=== PATIENT | female | born 1955 | race Caucasian/White ===

== ENCOUNTER → 2017-05-19 | Outpatient (CLI) | payer OTHER | LOC: FIMAGING 12:56 | PROVIDERS: ATTEND Obstetrics & Gynecology | DX: N95.0 Postmenopausal bleeding (principal); R93.8 Abnormal findings on diagnostic imaging of other specified body structures ==

== ENCOUNTER → 2017-05-26 | Outpatient (CLI) | payer OTHER | LOC: FIMAGING 15:12 | PROVIDERS: ATTEND Family Medicine | DX: Z12.31 Encounter for screening mammogram for malignant neoplasm of breast (principal) ==

== ENCOUNTER → 2017-06-02 | Outpatient (CLI) | payer OTHER | LOC: FIMAGING 11:24 | PROVIDERS: ATTEND Family Medicine | DX: R92.0 Mammographic microcalcification found on diagnostic imaging of breast (principal) | CPT/HCPCS: G0204 ==

== ENCOUNTER → 2017-06-13 | Outpatient (CLI) | payer OTHER ==
[~2017-06-13] MED LIST: BUPIVACAINE 0.5% 10 ML SDV ONE; LIDO/EPI 1% **Not for Epidural 20 ML MDV ONE; LIDOCAINE 1% 300 MG/30 ML SDV ONE; THROMBIN (BOVINE) 5,000 UNIT VIAL TP ONE
== END ==
LOC: FIMAGING 07:06
PROVIDERS: ATTEND Family Medicine
DX: D05.92 Unspecified type of carcinoma in situ of left breast (principal); D05.91 Unspecified type of carcinoma in situ of right breast
CPT/HCPCS: G0204

== ENCOUNTER 2017-07-07 07:13 | Day surgery (SDC) | payer OTHER ==
[~2017-07-07 07:13] MED LIST changes: -BUPIVACAINE 0.5% 10 ML SDV ONE; -LIDO/EPI 1% **Not for Epidural 20 ML MDV ONE; -LIDOCAINE 1% 300 MG/30 ML SDV ONE; -THROMBIN (BOVINE) 5,000 UNIT VIAL TP ONE; +ceFAZolin 2 GM/DEXTROSE 100 ML IV ONE; +ceFAZolin 2 GM/SWFI 2 GM/20 ML SYR IVP ONE
[2017-07-07] MEDS ORDERED: LIDOCAINE 1% 2 ML INJ ID PRN (07:25)
[2017-07-07] MEDS ORDERED: LR 1,000 ML IV ONE (07:25)
--- NOTE | 2017-07-07 07:31 | PDHPUP ---
History & Physical Update H&P update statement: This history and physical update is based on an assessment of the patient which was completed after admission or registration (within 24 hours), but prior to the surgery/procedure. H&P update: H&P reviewed & patient examined, no change in patient's condition since H&P completed
[2017-07-07] MEDS ORDERED: MIDAZOLAM 2 MG/2 ML VIAL IVP ONE (07:52)
--- NOTE | 2017-07-07 07:54 | PDANEPAE ---
ANE History of Present Illness US guided port placement ANE Past Medical History - Cardiovascular History Hx Hypertension: No Hx Arrhythmias: No Hx Chest Pain: No Hx Coronary Artery / Peripheral Vascular Disease: No Hx CHF / Valvular Disease: No Hx Palpitations: No - Pulmonary History Hx COPD: No Hx Asthma/Reactive Airway Disease: No Hx Recent Upper Respiratory Infection: No Hx Oxygen in Use at Home: No Hx Sleep Apnea: No Sleep Apnea Screening Result - Last Documented: Negative - Neurologic History Hx Cerebrovascular Accident: No Hx Seizures: No Hx Dementia: No - Endocrine History Hx Diabetes: No Endocrine History Comment: Hypothyroid-med. - Renal History Hx Renal Disorders: No - Liver History Hx Hepatic Disorders: No - Neurological & Psychiatric Hx Hx Neurological and Psychiatric Disorders: No - Cancer History Hx Cancer: Yes Cancer History Comment: breast cancer - Congenital Disorder History Hx Congenital Disorders: No - GI History Hx Gastrointestinal Disorders: No - Other Health History Other Health History: [place]-medicated cream daily. Bottom missing tooth. Bruise easily.Heavy menstrual periods. Arthritis both knees. - Chronic Pain History Chronic Pain: Yes (R knee.) - Surgical History Prior Surgeries: 2006-R knee scope. 1987-C section. Tonsils as child. ANE Review of Systems Review of systems is: negative Review of Systems: - Exercise capacity Exercise capacity: >=4 METS METS (RN): 4 METS ANE Patient History - Allergies Allergies/Adverse Reactions: Penicillins Allergy (Intermediate, Verified 06/25/15 10:15) Hives - Home Medications Home medications: home medication list seen and reviewed Home Medications: Calcium Carbonate [Oyster Shell Calcium 500 mg (*)] 06/11/15 [Last Taken ] Herbals/Supplements -Info Only 06/11/15 [Last Taken 07/05/17] Levothyroxine [Synthroid 137 mcg (*)] 06/11/15 [Last Taken 07/14/15 19:30] Vit A/Vit C/Vit E/Zinc/Copper [Preservision Areds Softgel] 06/11/15 [Last Taken 07/05/17] metroNIDAZOLE [Metrogel] 06/11/15 [Last Taken 07/06/17] Cholecalciferol (Vitamin D3) [Vitamin D3] 06/25/15 [Last Taken 07/05/17] Acetaminophen [Tylenol 325mg (*)] 07/06/17 [Last Taken Unknown] Ibuprofen 07/07/17 [Last Taken 07/05/17] - NPO status NPO Status: no food or drink >8 hours - Anes Hx Anes Hx: awareness under anesthesia - Smoking Hx Smoking Status: Never smoked - Family Anes Hx Family Anes Hx: none Family Hx Anesthesia Complications: none ANE Labs/Vital Signs - Vital Signs Height: 172.72 cm Weight: 98.883 kg ANE Physical Exam - Airway Neck exam: FROM Mallampati Score: Class 2 Mouth image: 1 - MISSING - Pulmonary Pulmonary: no respiratory distress - Cardiovascular Cardiovascular: regular rate and rhythym - ASA Status ASA Status: III ANE Anesthesia Plan Total IV Anesthesia: Yes
[2017-07-07] MEDS ORDERED: BUPIVACAINE 0.5% 30 ML SDV ONE (08:28)
[2017-07-07] MEDS ORDERED: PROPOFOL/EMULSION 500 MG/50 ML BOTTLE IV ONE (08:36)
[2017-07-07] MEDS ORDERED: LIDOCAINE 2% 100 MG/5 ML SYR ONE (08:36)
[2017-07-07] MEDS ORDERED: NALOXONE HCL 0.4 MG/ML INJ IVP PRN (09:04)
[2017-07-07] MEDS ORDERED: HYDROmorphONE/DILAUDID 1 MG/ML INJ IVP PRN (09:04)
[2017-07-07] MEDS ORDERED: fentaNYL 100 MCG/2 ML INJ IVP PRN (09:04)
[2017-07-07] MEDS ORDERED: OXYCODONE/APAP 5/325 TAB PO PRN (09:04)
[2017-07-07] MEDS ORDERED: HYDROCODONE/APAP 5/325 TAB PO PRN (09:04)
[2017-07-07] MEDS ORDERED: ONDANSETRON 4 MG/2 ML VIAL IVP PRN (09:04)
[2017-07-07] MEDS ORDERED: DEXAMETHASONE 4 MG/ML VIAL IVP PRN (09:04)
[2017-07-07] MEDS ORDERED: MEPERIDINE 25 MG/ML SYR IVP PRN (09:04)
[2017-07-07] MEDS ORDERED: ACETAMINOPHEN 500 MG TAB PO PRN (09:04)
--- NOTE | 2017-07-07 09:11 | POSTOPPROG ---
Post Op Note Date of Operation: 07/07/17 Surgeon: Melba Best Anesthesiologist: jaison Anesthesia: IV Sedation Pre-op Diagnosis: breast cancer Post-op Diagnosis: same Indication: 61 yo with breast cancer Procedure: L us guided port Findings: tip svc Inf/Abcess present in the surg proc area at time of surgery?: No Specimen(s): none
--- NOTE | 2017-07-07 09:13 | POSTANESTH ---
Post Anesthetic Evaluation Cardiovascular Status: Normal, Stable, Similar to Pre-Op Cond Respiratory Status: Normal, Stable, Similar to Pre-op Cond. Level of Consciousness/Mental Status: Can Participate in Eval, Mildly Sleepy, Arousable Pain Control: Adequate, Prn Tx Ordered Nausea/Vomiting Control: Adequate, Prn Tx Ordered Complications Possibly Related to Anesthesia: None Noted
[2017-07-07] MEDS ORDERED: HYDROCODONE/APAP 5/325 TAB ONE (09:52)
[2017-07-07 10:11] VITALS: TEMP 97
[2017-07-07 10:42] VITALS: BP 141/73; PULSE 59; RESP 14; O2SAT 93
--- NOTE | 2017-07-07 18:18 | GOP ---
[f rep st] OPERATIVE REPORT DATE OF OPERATION: 07/07/2017 SURGEON: Melba Best MD ANESTHESIA: General. ANESTHESIOLOGIST: Zhou Al MD PREOPERATIVE DIAGNOSIS: Bilateral breast cancer. POSTOPERATIVE DIAGNOSIS: Bilateral breast cancer. PROCEDURE PERFORMED: Left ultrasound-guided PowerPort placement. FINDINGS: Tip in the SVC. SPECIMENS: None. ESTIMATED BLOOD LOSS: 10 cc. INDICATIONS: The patient is a 61-year-old, diagnosed with a progressive right breast cancer and left breast DCIS. She presents for port placement. DESCRIPTION OF PROCEDURE: The patient was brought into the operating room, placed supine on the tabl e, and IV sedation was performed. Her bilateral neck and chest were prepped and draped in the usual sterile fashion. I infiltrated all sites with 0.5% Marcaine prior to making incisions. I used a tot al of 20 cc of 0.5% Marcaine. I used ultrasound to identify the left internal jugular vein. Under u ltrasound guidance, I accessed this on the first attempt with dark return of blood flow. I threaded the guidewire and removed the needle. I confirmed placement with fluoroscopy. A pocket was made to accommodate the port into the left chest. The port was tunneled up to the insertion site under fluor oscopy. The catheter was measured and cut to size. I placed a dilator and sheath over the wire, I r emoved the wire and the dilator. I placed the catheter through the sheath and peeled away the sheath . Placement was confirmed with fluoroscopy. The port withdrew blood easily and was flushed with hep philip. The pocket closed with 3-0 Vicryl followed by 4-0 Monocryl. Dermabond applied. She was awake layne in the operating room, transferred to PACU in stable condition. /[id number]/MODL
== END 2017-07-07 11:10 | disposition home or self-care (01) ==
LOC: FSGY 07:13
PROVIDERS: ATTEND Surgery
DX: C50.411 Malignant neoplasm of upper-outer quadrant of right female breast (principal); D05.12 Intraductal carcinoma in situ of left breast; Z17.0 Estrogen receptor positive status [ER+]; E78.5 Hyperlipidemia, unspecified; E03.9 Hypothyroidism, unspecified; E55.9 Vitamin D deficiency, unspecified; Z96.652 Presence of left artificial knee joint; Z86.010 Personal history of colon polyps
CPT/HCPCS: C1788; J0690; J1642; J2001; J2250; J2704

== ENCOUNTER → 2017-09-26 | Outpatient (CLI) | payer OTHER | LOC: FIMAGING 13:21 | PROVIDERS: ATTEND Nurse Practitioner | DX: M79.89 Other specified soft tissue disorders (principal); C50.919 Malignant neoplasm of unspecified site of unspecified female breast ==

== ENCOUNTER → 2017-10-13 | Outpatient (CLI) | payer OTHER | LOC: FIMAGING 10:28 | PROVIDERS: ATTEND Nurse Practitioner | DX: M79.605 Pain in left leg (principal); R22.42 Localized swelling, mass and lump, left lower limb ==

== ENCOUNTER → 2017-11-21 | Outpatient (CLI) | payer OTHER ==
[~2017-11-21] MED LIST changes: +GADOBUTROL 10 ML VIAL IVP ONE; -ceFAZolin 2 GM/DEXTROSE 100 ML IV ONE; -ceFAZolin 2 GM/SWFI 2 GM/20 ML SYR IVP ONE
== END ==
LOC: FIMAGING 12:53
PROVIDERS: ATTEND Internal Medicine Hematology & Oncology
DX: R92.8 Other abnormal and inconclusive findings on diagnostic imaging of breast (principal); Z85.3 Personal history of malignant neoplasm of breast
CPT/HCPCS: 0159T; 77059; A9585; C8908

== ENCOUNTER 2017-11-28 15:48 | Inpatient (IN) | payer SELFPAY ==
--- NOTE | 2017-11-28 16:14 | EDPHY ---
H & P Stated Complaint: SOB, fatigue for the past couple weeks, getting worse Time Seen by Provider: 11/28/17 16:13 HPI/ROS: CHIEF COMPLAINT: Shortness of breath, cough x5 days HISTORY OF PRESENT ILLNESS: The patient presents to the ED with a history of dyspnea. It has been progressive and now associated with a dry nonproductive cough and lower extremity edema. The patient does have a history of breast cancer and is currently being treated at [facility] by Dr. Graham. He saw the patient in the office today and referred her to the emergency department for evaluation of acute hypoxemia. The patient denies history of congestive heart failure. She denies history of pulmonary embolism. The patient denies history of cardiac disease. The patient reports she has developed fairly significant tense edema to her lower and upper extremities. REVIEW OF SYSTEMS: A comprehensive 10 point review of systems is otherwise negative aside from elements mentioned in the history of present illness. Source: Patient Exam Limitations: No limitations - Personal History Current Tetanus/Diphtheria Vaccine: Unsure Current Tetanus Diphtheria and Acellular Pertussis (TDAP): Unsure - Medical/Surgical History Hx Asthma: No Hx Chronic Respiratory Disease: No Hx Diabetes: No Hx Cardiac Disease: No Hx Renal Disease: No Hx Cirrhosis: No Hx Alcoholism: No Hx HIV/AIDS: No Hx Splenectomy or Spleen Trauma: No Other PMH: hypothyroid, breast CA - Social History Smoking Status: Never smoked - Physical Exam Exam: General Appearance: Alert, mild tachypnea Eyes: Pupils equal and round no pallor or injection ENT, Mouth: Mucous membranes moist Respiratory: Rales bilateral lower lobes Cardiovascular: Regular rate and rhythm Gastrointestinal: Abdomen is soft and nontender, no masses, bowel sounds normal Neurological: 5/5 strength all 4 extremities Skin: Warm and dry, no rashes Musculoskeletal: Neck is supple nontender Extremities: Pitting edema noted to the upper lower extremities Constitutional: Initial Vital Signs Temperature (C) 36.8 C 11/28/17 15:53 Heart Rate 101 H 11/28/17 15:53 Blood Pressure 126/75 H 11/28/17 15:53 O2 Sat (%) 86 L 11/28/17 15:53 O2 Delivery Mode Room Air Allergies/Adverse Reactions: Penicillins Allergy (Intermediate, Verified 11/28/17 15:52) Hives Home Medications: Medication Instructions Recorded Herbals/Supplements -Info Only 1 each PO DAILY 06/11/15 C/E/Zn/Cu/OM3/DHA/EPA/LUT/ZEAX 1 each PO BID 11/28/17 [Preservision Areds 2 Softgel] Calcium Carb W/Vit D [Calcium Carb 500 mg PO BID 11/28/17 W/Vit D 500/200 (*)] Cholecalciferol Vit D3 [Vitamin D3 5,000 units PO BID 11/28/17 2000 units tab (OTC)] Levothyroxine [Synthroid 137 mcg 137 mcg PO DAILY06 11/28/17 (*)] Multivitamins [Multivitamin (*)] 1 each PO DAILY 11/28/17 Prochlorperazine Maleate 10 mg PO BID PRN 11/28/17 [Compazine 10mg (*)] Trastuzumab [Herceptin] 150 mg IV .Q3WK 11/28/17 metroNIDAZOLE 0.75 % [Metrogel 1 clarice TP HS 11/28/17 0.75% Topical Gel (RX)] Medical Decision Making - Diagnostics EKG Interpretation: EKG: Complete interpretation has been separately recorded in the [id number] archive. Summary impression: Sinus rhythm, rate 92 Imaging Results: Imaging Impressions Chest X-Ray 11/28/17 16:33 Impression: Multifocal bilateral airspace consolidation with associated pleural effusions and compressive atelectasis. Different diagnosis includes bronchopneumonia, drug reaction/pneumonitis secondary to chemotherapy, and less likely limited carcinomatosis. Chest/Thorax CTA 11/28/17 17:13 Impression: 1. No pulmonary embolism. 2. Multifocal nonmasslike patchy lung consolidation bilaterally. Differential considerations include multifocal pneumonia, atypical edema and drug reaction pneumonitis. Follow-up imaging recommended. 3. Small pleural effusions, likely parapneumonic or related to volume overload. 4. Borderline mediastinal adenopathy, likely reactive. Findings and recommendations discussed with Willie Che at 5:46 PM hour, . ED Course/Re-evaluation: The patient presents to the ED for evaluation of dyspnea and edema. The patient was taken for a chest x-ray which demonstrates infiltrative changes to the lung bases. The patient was noted to have somewhat low voltage on her EKG. I did perform a bedside ultrasound which demonstrates no significant pericardial effusion or tamponade. Given the patient's cancer history she was taken for CT pulmonary angiogram which demonstrates similar changes to her chest x-ray. The patient did have blood cultures x2 obtained in the emergency department. She will be started on antibiotics for possible infiltrate. The patient has no evidence of septic physiology. Consultation was made with Dr. David De León from the hospitalist service who will admit the patient. Differential Diagnosis: Differential diagnosis considered includes pulmonary embolism, heart failure, pneumonitis, pneumonia - Data Points Laboratory Results: Laboratory Results 11/28/17 16:24 11/28/17 11/28/17 11/28/17 16:31 16:24 16:24 WBC 5.39 10^3/uL 10^3/uL (3.80-9.50) RBC 2.58 10^6/uL L 10^6/uL (4.18-5.33) Hgb 9.3 g/dL L g/dL (12.6-16.3) POC Hgb 9.9 gm/dL L gm/dL (12.6-16.3) Hct 28.7 % L % (38.0-47.0) POC Hct 29 % L % (38-47) MCV 111.2 fL H fL (81.5-99.8) MCH 36.0 pg H pg (27.9-34.1) MCHC 32.4 g/dL g/dL (32.4-36.7) RDW 20.4 % H % (11.5-15.2) Plt Count 136 10^3/uL L 10^3/uL (150-400) MPV 9.9 fL fL (8.7-11.7) Neut % (Auto) 73.1 % % (39.3-74.2) Lymph % (Auto) 16.1 % % (15.0-45.0) Lyon % (Auto) 9.8 % % (4.5-13.0) Eos % (Auto) 0.0 % L % (0.6-7.6) Baso % (Auto) 0.4 % % (0.3-1.7) Nucleat RBC Rel Count 0.0 % % (0.0-0.2) Absolute Neuts (auto) 3.94 10^3/uL 10^3/uL (1.70-6.50) Absolute Lymphs (auto) 0.87 10^3/uL L 10^3/uL (1.00-3.00) Absolute Monos (auto) 0.53 10^3/uL 10^3/uL (0.30-0.80) Absolute Eos (auto) 0.00 10^3/uL L 10^3/uL (0.03-0.40) Absolute Basos (auto) 0.02 10^3/uL 10^3/uL (0.02-0.10) Absolute Nucleated RBC 0.00 10^3/uL 10^3/uL (0-0.01) Immature Gran % 0.6 % % (0.0-1.1) Immature Gran # 0.03 10^3/uL 10^3/uL (0.00-0.10) Platelet Estimate ADEQUATE (ADEQ) Polychromasia 1+ H Microcytic Cells 1+ H Spherocytes 2+ H Oval Macrocytes 1+ H Smear Review By Pending POC Sodium 136 mEq/L mEq/L (135-145) POC Potassium 3.1 mEq/L L mEq/L (3.3-5.0) POC Chloride 97 mEq/L mEq/L (97-110) POC BUN 12 mg/dL mg/dL (7-23) POC Creatinine 0.7 mg/dL mg/dL (0.6-1.0) POC Glucose 119 mg/dL H mg/dL (70-100) Troponin I < 0.012 ng/mL ng/mL (0.000-0.034) NT-Pro-B Natriuret Pep 269 pg/mL H pg/mL (0-125) Point of Care Test Results: 11/28/17 16:31 POC Sodium 136 POC Potassium 3.1 L POC Chloride 97 POC BUN 12 POC Creatinine 0.7 POC Glucose 119 H Departure - Departure Disposition: [facility] Acute Clinical Impression: Hypoxemia, Peripheral edema, Breast cancer Condition: Fair
--- NOTE | 2017-11-28 16:31 | CPEKG ---
Heart Rate: 92 RR Interval: 652 P-R Interval: 172 QRSD Interval: 98 QT Interval: 380 QTC Interval: 471 P [place]: 17 QRS [place]: -12 T Wave [place]: 2 EKG Severity - BORDERLINE ECG - EKG Impression: SINUS RHYTHM EKG Impression: BORDERLINE R WAVE PROGRESSION, ANTERIOR LEADS EKG Impression: BORDERLINE T ABNORMALITIES, INFERIOR LEADS Electronically Signed By: Willie Che 28-Nov-2017 18:49:58
[2017-11-28 16:51] LABS: PLATELET COUNT 136 10^3/uL (150-400)
[2017-11-28] MEDS ORDERED: IOPAMIDOL (ISOVUE 370) 100 ML BTL IV ONE ×2 (17:17→17:21)
[2017-11-28] MEDS ORDERED: ACETAMINOPHEN 325 MG TAB PO PRN (17:26)
[2017-11-28] MEDS ORDERED: ONDANSETRON DISINTEGRATING 4 MG TAB PO PRN (17:26)
[2017-11-28] MEDS ORDERED: ONDANSETRON 4 MG/2 ML VIAL IVP PRN (17:26)
[2017-11-28] MEDS ORDERED: POTASSIUM CL 20 MEQ TAB PO ONE (17:50)
--- NOTE | 2017-11-28 18:17 | GHP ---
[f rep st] HISTORY AND PHYSICAL DATE OF ADMISSION: 11/28/2017 CHIEF COMPLAINT: Shortness of breath. HISTORY OF PRESENT ILLNESS: This is a 62-year-old female with a history of breast cancer who present s with shortness of breath. This has been ongoing for about a month. She is being treated with Taxo arcelia, carboplatin, Herceptin and Perjeta. She sees Dr. Graham. She currently describes some lower extremity edema which has been also progressive over the last month. She is not sure if she has los t any weight. She has a cough which is nonproductive. She denies any chest pain. She has a home pu lse oximetry which she has noted has been in the 80s recently. A month ago she was in the low 90s. In the emergency department she received a bedside echocardiogram. Dr. Che noted that she had a r elatively normal ejection fraction, normal valves, no restrictive cardiomyopathy. PAST MEDICAL/SURGICAL HISTORY: 1. Breast cancer on chemotherapy. 2. Hypothyroid. 3. Right TKA. MEDICATIONS: Please see medication reconciliation. ALLERGIES: Penicillin. SOCIAL HISTORY: She is accompanied by her . She does not drink or smoke. FAMILY HISTORY: She has multiple cancers in her family. REVIEW OF SYSTEMS: A 10-point review of systems is conducted and is negative except per HPI. PHYSICAL EXAM: VITAL SIGNS: Blood pressure 126/75, heart rate 101, respiration rate is 20, saturati ng at 86% on room air, temperature is 36.8. GENERAL: The patient is a pleasant female who is restin g comfortably on oxygen, no acute distress. HEENT: Normocephalic, atraumatic. CARDIOVASCULAR: Reg ular rate and rhythm. No murmurs, rubs, or gallops. CHEST: Shows her to have a left-sided port in place with no surrounding erythema. PULMONARY: Shows her to have bilateral basilar rales. ABDOMEN: Soft, nontender, nondistended. SKIN: Shows no rash. : No Gutierrez. NEUROLOGIC: Shows her to be alert and oriented x3. She is moving all extremities. EXTREMITIES: Shows her to have 2+ bilateral lower extremity pitting edema as well as some mild upper extremity pitting edema. LABS: Hemoglobin is 9.3, platelets are 136. BNP is 269. Potassium is 3.1. Albumin is 2.5. DATA: 1. I discussed this with Dr. Che. Will admit to med/surg. 2. I personally viewed and interpreted her chest x-ray. This shows bilateral infiltrates consistent with either pneumonia versus pulmonary edema versus pneumonitis. 3. I personally viewed and interpreted her ECG. This shows sinus rhythm. She has some mild T-wave flattening. IMPRESSION AND PLAN: 1. Constellation of pulmonary infiltrates, upper and lower extremity edema. Differential includes s ystolic congestive heart failure from chemotherapy, drug reaction to chemotherapy with pneumonitis as well as capillary leak. Also consider pulmonary embolism, CT angio is pending. Her albumin is 2.5, likely not low enough to explain edema from decreased oncotic pressure. For now, will follow up on CT angiogram. We will start her on antibiotics. Check a procalcitonin, consider stopping antibiotic s soon. Check echocardiogram. She will need an oncology consultation, she was sent in by Dr. Ana Luisa lieberman. 2. Breast cancer. She is getting treatment as above. Oncology will be involved. 3. Hypothyroid. We will restart her Synthroid dose. 4. Code status. 5. Venous thromboembolism risk is high. I will give her Lovenox. /[id number]/MODL
[2017-11-28] MEDS: HYDROcodone/CPM TUSSIONEX 5 ML UDSYR PO PRN (21:32)
[2017-11-28] MEDS ORDERED: PROCHLORPERAZINE MALEATE 10 MG TAB PO PRN (23:01)
[2017-11-29] MEDS: LEVOTHYROXINE 137 MCG TAB PO SCH (05:12)
[2017-11-29 05:27] LABS: PLATELET COUNT 127 10^3/uL (150-400)
[2017-11-29] MEDS: methylPREDNISolone SOD SUCC 125 MG/2 ML VIAL IVP SCH ×2 (09:40→20:55)
[2017-11-29] MEDS: PRESERVISION AREDS2 FORMULA EYE VIT 1 EACH PO SCH ×2 (09:40→20:55)
--- NOTE | 2017-11-29 09:49 | GCON ---
[f rep st] CONSULTATION HEM/ONC CONSULTATION REASON FOR CONSULTATION: shortness of breath and bilateral breast cancer. RECOMMENDATION: 1. Solu-Medrol at least for the first day at a high dose, then switch to prednisone, and then a slow taper. 2. Transfusion 1 unit of packed cells. CLINICAL IMPRESSION: 1. Taxotere induced hypersensitivity pneumonitis. 2. Stage IIA HER2 positive right-sided breast cancer in clinical complete remission with neoadjuvant TCHP and left-sided breast cancer in remission. CLINICAL HISTORY: The patient is a very pleasant 62-year-old woman who is a patient of Dr. Corbett. She presented with bilateral breast cancer at age 61 when she had a palpable right breast mas s 2.2 cm in size. She had a left-sided DCIS, and the right side was invasive lobular, ER positive, P R weakly positive, and HER2 was 3+. She had genetic testing performed, which was apparently negative , and a PET-CT scan showed no evidence of metastatic disease. She had 6 cycles of the TCHP, and now presents with an acute history of 1 week of significant dry cough and dyspnea on exertion without fev er. She was referred from the clinic to the emergency room where a CT angiogram ruled out pulmonary emboli and did reveal bilateral diffuse ground-glass opacities consistent with a drug induced pneumon itis. The patient's CBC today is remarkable for a white count of 4.3, hemoglobin is 7.7, and platele t count is 127. Her last dose of chemotherapy was on 11/07/2017 or, in other words, about 3 weeks ag o. PAST MEDICAL HISTORY: Otherwise unremarkable for the fact that she has generally been in good health . She never smoked cigarettes. She has an influenza vaccine this year. FAMILY HISTORY: Paternal grandmother with ovarian cancer at age 57 and her father had lung cancer at 61. She had a maternal grandmother with breast cancer. SOCIAL HISTORY: She works as the marketing operations coordinator at [employer], has 4 children, is marri ed and lives in [place]. REVIEW OF SYSTEMS: She currently has a performance status of 70%. She has difficulty walking to the bathroom because of shortness of breath, and she has a significant dry cough. She has had no fever. No nausea, vomiting, or diarrhea. The patient does not have any dysuria or hematuria. She has no bone complaints. She denies any head aches or focal neurologic weakness. PHYSICAL EXAMINATION: GENERAL: Clinical exam reveals a well-developed, coherent, alert white female looking her stated age. She is somewhat anxious. HEENT: She has no scleral icterus. NECK: She h as no cervical or supraclavicular adenopathy. BREASTS: Free of any focal masses. CV: S1 normal, S 2 normally split. She has no S3, S4, or murmur. ABDOMEN: Soft and nontender and she has no hepatos plenomegaly. She has abdominal obesity. MUSCULOSKELETAL: There is no extremity edema or calf tende rness. NEUROLOGICAL: She is intact. ASSESSMENT: 1. 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 Treatment plan would be to use corticosteroids and saw of Dr. rodríguez today and have a call in to discuss this with her hospitalist. I ordered Solu-Medrol initially at 125 mg every 12 hours, and then once she improves, then we switch her over to oral prednisone and then manage her as an outpatie nt. 2. Right-sided HER2 positive, estrogen receptor positive breast cancer. 3. Left-sided ductal carcinoma in situ. 4. Chemotherapy-induced pancytopenia. The breast cancer appears to be in a complete clinical remission on MRI scan. Further decision will be made about local therapy, but most likely would be bilateral mastectomies and sentinel node. The imaging tests were reviewed today including the MRIs and the CT. I think it would be appropriate to give her a unit of packed cells for hemoglobin of 7.7. I do not t hink we are dealing with DIC or TTP. Her organ function otherwise is normal today with a normal set of electrolytes, and I should note her BNP level was slightly elevated at 269. Her BUN and creatinin e were 13 and 0.6. /[id number]/MODL
--- NOTE | 2017-11-29 11:12 | ECHO ---
[email or web address] [address] [address] Main: [phone] Fax: Transthoracic Echocardiogram Name: CA ÁLVAREZ MR#: [id number] Study Date: 11/29/2017 Study Time: 09:51 AM Date of : 1955 Age: 62 year(s) Height: 172.7 cm (68 in.) Weight: 95.26 kg (210 lb.) BSA: 2.09 m2 Gender: Female Examination: Echo Indication: Edema/Breast CA/ chemo Image Quality: Contrast: Requested by: David De León BP: 122 mmHg/59 mmHg Heart Rate: Rhythm: Indication: Edema/Breast CA/ chemo Procedure Staff Shop Service Technician: Kimmie Medina RDCS Reading Physician: Yossi Murrieta MD Requesting Provider: Conclusions: Normal size left ventricle. Global hypercontractility of the left ventricle. The ejection fraction is estimated to be 70-75 %. The mitral valve is normal in appearance and function. Mild mitral valve regurgitation is present. Aortic valve is not well visualized. Trivial aortic valve regurgitation. AV max PG is 19mmHG. AV mean PG is 11mmHG.. The pulmonary artery pressure is normal. Dilated ascending aorta measuring 3.9 cm. Trivial pericardial effusion. There is a linear echodensity in the right atrium suggestive of a catheter. Clinical correlation required. Measurements: Chambers Valvular Assessment AV/MV Valvular Assessment TV/PV Normal Normal Normal Name Value Range Name Value Range Name Value Range Ao Saskia (MM): 3.3 cm (2.2 cm-3.7 AV meanP mmHg ( - ) TR Vmax: 2.66 mm/s ( - ) cm) LVOT Vmax: 1.32 m/s (0.7 m/s-1.1 TR PGmax: 28 mmHg ( - ) IVSd (2D): 1.0 cm (0.6 cm-1.1 m/s) syst. PAP: 33 mmHg ( - ) cm) REJI (VTI): 2.2 cm ( - ) LVDd (2D): 5.4 cm (3.9 cm-5.3 MV E Vmax: 1.18 m/s ( - ) cm) MV A Vmax: 0.87 m/s ( - ) LVDs (2D): 3.4 cm (2.1 cm-4 MV E/A: 1.36 ( - ) cm) LVPWd (2D): 1.0 cm ( - ) LVOTd 2.0 cm 2.0 cm mm LVEF (MOD4): 73 % (>=55 %) EF Range: 70-75 % Patient: CA ÁLVAREZ Study Date: 11/29/2017 Page 1 of 2 09:51 AM Continued Measurements: Chambers Valvular Assessment AV/MV Valvular Assessment TV/PV Name Value Name Value Name Value LADs: 3.7 cm MV E/E' Septal: 15.90 CVP (est.): 5 mmHg LADs Lon.2 cm MV E/E' Lateral: 12.40 LA Area: 19.6 cm2 Additional Vessels Name Value Ao Ascendin.9 cm Findings: Left Ventricle: Normal size left ventricle. No LV hypertrophy. Global hypercontractility of the left ventricle. The ejection fraction is estimated to be 70-75 %. No regional wall motion abnormality. Right Ventricle: Normal size right ventricle. Left Atrium: The left atrium is normal in size. Right Atrium: The right atrium is normal in size. Chemo port in place.. Mitral Valve: The mitral valve is normal in appearance and function. Mild mitral valve regurgitation is present. Aortic Valve: Aortic valve is not well visualized. Trivial aortic valve regurgitation. AV max PG is 19mmHG. AV mean PG is 11mmHG.. Tricuspid Valve: The tricuspid valve is normal in appearance and function. Mild tricuspid regurgitation is present. The pulmonary artery pressure is normal. Pulmonic Valve: The pulmonic valve is normal in appearance and function. Aorta: The aorta is normal. Dilated ascending aorta measuring 3.9 cm. Pericardium: Trivial pericardial effusion. Left side pleural effusion. (No Signature Object) Patient: CA ÁLVAREZ Study Date: 11/29/2017 Page 2 of 2 09:51 AM [id number]
--- NOTE | 2017-11-29 12:41 | SOAPPROG ---
SOAP Progress Note Assessment/Plan: Assessment/Plan: 62yo F well known to Dr. Best for bilateral breast cancer on neoadjuvant chemo. Admitted with taxotere-induced pneumonitis Current inpatient care per hospitalists, oncologists MRI last week shows tremendous improvement on neoadjuvant chemo! Dr. Best will see tomorrow Patient and 's questions answered Exam deferred Objective: Vital Signs Temp Pulse Resp BP Pulse Ox 36.7 C 89 14 121/66 H 95 11/29/17 11:33 11/29/17 11:33 11/29/17 11:33 11/29/17 11:33 11/29/17 11:33 Microbiology 11/28/17 23:10 Respiratory Panel (PCR) - Final Nasal, Sinus - Anaerobic Tube/Swab No Organism Detected Laboratory Results 11/29/17 05:05 11/29/17 05:05 11/28/17 11/29/17 11/30/17 05:59 05:59 05:59 Intake Total 152 Balance 152 ICD10 Worksheet Patient Problems: Problems Problem Status Onset Breast cancer Acute Hypoxemia Acute Peripheral edema Acute Primary localized osteoarthritis of right knee Acute
[2017-11-29] MEDS: ENOXAPARIN 40 MG/0.4 ML SYR SC SCH (12:53)
--- NOTE | 2017-11-29 13:33 | ASMTCMCOM ---
CM Note CM Note Notes: Patient admitted for SOB. She has breast cancer and is currently receiving chemo (to which she is responding well) with Dr Graham. Oncology and Surgery will both see her. PT has been ordered and is pending. Patient lives with her and is employed. Case Management will follow for discharge planning. Date Signed: 11/29/2017 01:32 PM Electronically Signed By:Sydney Madera RN
[2017-11-29] MEDS ORDERED: FUROSEMIDE 20 MG/2 ML VIAL IVP ONE (14:53)
--- NOTE | 2017-11-29 14:58 | HOSPPROG ---
Hospitalist Progress Note Assessment/Plan: #Drug induced Hypersensitivity Pneumonitis #Pulmonary Edema, Pedal Edema #Possible CAP #Bilateral Breast cancer #Chemotherapy induced pancytopenia -pending 1 unit PRBC transfusion #Hypokalemia Plan: -Cont high dose steroids, decrease tomorrow -TTE reviewed, preserved EF -will do a trial of Lasix 20mg IV x 1 after transfusion, may need additional -for now cont abx, although low suspicion for pneumonia, can likely stop after tomorrows dose -await PRBC transfusion -Replace electrolytes -Lovenox for DVT proph D/W Dr. Mckeon Subjective: Feels slightly better. still SOB Objective: Vital Signs Temp Pulse Resp BP Pulse Ox 36.7 C 89 14 121/66 H 95 11/29/17 11:33 11/29/17 11:33 11/29/17 11:33 11/29/17 11:33 11/29/17 11:33 Microbiology 11/28/17 23:10 Respiratory Panel (PCR) - Final Nasal, Sinus - Anaerobic Tube/Swab No Organism Detected Laboratory Results 11/29/17 05:05 11/29/17 05:05 11/28/17 11/29/17 11/30/17 05:59 05:59 05:59 Intake Total 152 Balance 152 - Physical Exam Constitutional: no apparent distress Eyes: PERRL, EOMI Ears, Nose, Mouth, Throat: moist mucous membranes, hearing normal Cardiovascular: regular rate and rhythym, edema (1+) Respiratory: no respiratory distress, reduced air movement Gastrointestinal: normoactive bowel sounds, soft, non-tender abdomen Skin: warm Neurologic: AAOx3 Psychiatric: interacting appropriately, not anxious, not encephalopathic Lymph, Heme, Immunologic: No petechiae ICD10 Worksheet Patient Problems: Problems Problem Status Onset Breast cancer Acute Hypoxemia Acute Peripheral edema Acute Primary localized osteoarthritis of right knee Acute
[2017-11-29] MEDS ORDERED: PROTOCOL POTASSIUM 1 DOSE MISC PRN (15:02)
[2017-11-29] MEDS ORDERED: BENZONATATE 100 MG CAP PO PRN (15:42)
--- NOTE | 2017-11-29 16:50 | PDMN ---
Medical Necessity Medical necessity: ongoing tx needed > 2 midnights- drug induced pneumonitis, pulm edema, pedal edema, poss CAP, hx bilat. Br. Ca. , chemo induced pancytopenia, hypokalemia
[2017-11-29] MEDS: METRONIDAZOLE 0.75 % 45 GEL TP SCH (20:55)
[2017-11-29] MEDS: HYDROcodone/CPM TUSSIONEX 5 ML UDSYR PO PRN (21:00)
[2017-11-30 04:03] LABS: PLATELET COUNT 159 10^3/uL (150-400)
[2017-11-30] MEDS: LEVOTHYROXINE 137 MCG TAB PO SCH (05:50)
[2017-11-30] MEDS ORDERED: POTASSIUM CL 10 MEQ TAB PO ONE (07:12)
[2017-11-30] MEDS: ENOXAPARIN 40 MG/0.4 ML SYR SC SCH (09:06)
[2017-11-30] MEDS: methylPREDNISolone SOD SUCC 125 MG/2 ML VIAL IVP SCH ×2 (09:06→20:58)
[2017-11-30] MEDS: PRESERVISION AREDS2 FORMULA EYE VIT 1 EACH PO SCH ×2 (10:54→20:58)
--- NOTE | 2017-11-30 12:32 | SOAPPROG ---
SOAP Progress Note Assessment/Plan: Assessment: 1. Taxotere induced hypersensitivity pneumonitis: She is breathin easier. The cXR is worse but i dont think that means anything at this point. We can probably convert to prednisone tomorrow. Once we are confident that she is improving we can probably discharge her on prednisone. 2. Anemia: better after one unit Plan:CBC in AM 11/30/17 12:29 Subjective: She feels better today. She is not coughing. Objective: Vital Signs Temp Pulse Resp BP Pulse Ox 36.4 C 96 20 135/78 H 91 L 11/30/17 11:56 11/30/17 11:56 11/30/17 11:56 11/30/17 11:56 11/30/17 11:56 Laboratory Results 11/30/17 03:35 11/30/17 03:35 11/29/17 11/30/17 12/01/17 05:59 05:59 05:59 Intake Total 750 Output Total 1800 100 Balance -1050 -100 Lungs: Mild dry rales in lower lung boggs. - Time Spent With Patient Time Spent With Patient: 30 min answering questions from the patient and her ICD10 Worksheet Patient Problems: Problems Problem Status Onset Primary localized osteoarthritis of right knee Acute Hypoxemia Acute Peripheral edema Acute Breast cancer Acute
[2017-11-30] MEDS ORDERED: FUROSEMIDE 40 MG/4 ML VIAL IVP ONE (13:05)
--- NOTE | 2017-11-30 13:40 | HOSPPROG ---
Hospitalist Progress Note Assessment/Plan: #Drug induced Hypersensitivity Pneumonitis #Pulmonary Edema, Pedal Edema #Possible CAP #Bilateral Breast cancer #Chemotherapy induced pancytopenia -s/p 1 unit PRBC transfusion #Hypokalemia Plan: -Cont high dose steroids, change to Prednisone tomorrow -TTE reviewed, preserved EF -additional IV Lasix today -start oral Lasix tomorrow -cont abx -repeat cbc in a.m. -Lovenox for DVT proph Subjective: good diuresis yesterday after Furosemide. CXR looks worse today. Still on 3L o2 Objective: Vital Signs Temp Pulse Resp BP Pulse Ox 36.4 C 96 20 135/78 H 91 L 11/30/17 11:56 11/30/17 11:56 11/30/17 11:56 11/30/17 11:56 11/30/17 11:56 Laboratory Results 11/30/17 03:35 11/30/17 03:35 11/29/17 11/30/17 12/01/17 05:59 05:59 05:59 Intake Total 750 Output Total 1800 300 Balance -1050 -300 - Physical Exam Constitutional: no apparent distress, not in pain Eyes: PERRL, EOMI Ears, Nose, Mouth, Throat: moist mucous membranes, hearing normal Cardiovascular: regular rate and rhythym, edema (1-2 +) Respiratory: reduced air movement Gastrointestinal: normoactive bowel sounds, soft, non-tender abdomen Genitourinary: no bladder fullness Skin: warm Neurologic: AAOx3 Psychiatric: interacting appropriately, not anxious, not encephalopathic, thought process linear Lymph, Heme, Immunologic: No petechiae ICD10 Worksheet Patient Problems: Problems Problem Status Onset Breast cancer Acute Hypoxemia Acute Peripheral edema Acute Primary localized osteoarthritis of right knee Acute
--- NOTE | 2017-11-30 16:08 | ASMTCMCOM ---
CM Note CM Note Notes: CM spoke w/ PT and they are recommending HC at this time. Annika from [employer] stopped by to evaluate pt today. Pt is in the process of enrolling into [employer]. Pt reports that she will eventually be re-enrolled with [employer]. Because pt is self pay. Pt will not qualify for any outpatient services at this time. CM met w/ pt for dispo planning. CM went over the recommendation by PT. Pt will most likely d/c independent when medically stable. CM available for changes. Plan: Independent Date Signed: 11/30/2017 04:07 PM Electronically Signed By:NADIA Lopez
[2017-11-30] MEDS: METRONIDAZOLE 0.75 % 45 GEL TP SCH (20:59)
[2017-11-30] MEDS: HYDROcodone/CPM TUSSIONEX 5 ML UDSYR PO PRN (21:03)
[2017-12-01 03:59] LABS: PLATELET COUNT 205 10^3/uL (150-400)
[2017-12-01] MEDS: LEVOTHYROXINE 137 MCG TAB PO SCH (05:55)
[2017-12-01] MEDS ORDERED: POTASSIUM CL 10 MEQ TAB PO ONE ×2 (06:27→20:53)
[2017-12-01] MEDS: methylPREDNISolone SOD SUCC 125 MG/2 ML VIAL IVP SCH (09:48)
[2017-12-01] MEDS: ENOXAPARIN 40 MG/0.4 ML SYR SC SCH (09:48)
[2017-12-01] MEDS: PRESERVISION AREDS2 FORMULA EYE VIT 1 EACH PO SCH ×2 (10:28→21:17)
[2017-12-01] MEDS: FUROSEMIDE 20 MG TAB PO SCH (10:28)
--- NOTE | 2017-12-01 10:44 | SOAPPROG ---
SOAP Progress Note Assessment/Plan: Assessment: 1. Taxotere induced hypersensitivity pneumonitis: Breathing is improving. The cXR is worse but i dont think that means anything at this point. We will start prednisone 60-80 mg daily today. She can go home when she is stable. 2. Anemia: Hgb 8.9 today. We will follow as OP Plan:as above 11/30/17 12:29 12/01/17 10:43 12/01/17 10:44 Subjective: She is feeling better. No significant cough Objective: Vital Signs Temp Pulse Resp BP Pulse Ox 36.6 C 90 17 135/79 H 93 12/01/17 08:15 12/01/17 08:15 12/01/17 08:15 12/01/17 08:15 12/01/17 08:15 Laboratory Results 12/01/17 03:41 12/01/17 03:41 11/30/17 12/01/17 12/02/17 05:59 05:59 05:59 Intake Total 750 850 Output Total 1800 1300 Balance -1050 -450 ICD10 Worksheet Patient Problems: Problems Problem Status Onset Breast cancer Acute Hypoxemia Acute Peripheral edema Acute Primary localized osteoarthritis of right knee Acute
[2017-12-01] MEDS ORDERED: FUROSEMIDE 20 MG/2 ML VIAL IVP ONE (11:11)
--- NOTE | 2017-12-01 11:14 | HOSPPROG ---
Hospitalist Progress Note Assessment/Plan: #Drug induced Hypersensitivity Pneumonitis #Pulmonary Edema, Pedal Edema #Possible CAP #Bilateral Breast cancer #Chemotherapy induced pancytopenia -s/p 1 unit PRBC transfusion #Hypokalemia #Weakness and Deconditioning Plan: -change steroids to prednisone, solumedrol already given this morning -TTE reviewed, preserved EF -lasix 20 mg IV x 1 + 20mg po daily as already given -cont oral lasix tomorrow -cont Levaquin -Lovenox for DVT proph -PT Expect d/c tomorrow Subjective: overall better, still with Dyspnea on exertion. leg swelling is better Objective: Vital Signs Temp Pulse Resp BP Pulse Ox 36.6 C 90 17 135/79 H 93 12/01/17 08:15 12/01/17 08:15 12/01/17 08:15 12/01/17 08:15 12/01/17 08:15 Laboratory Results 12/01/17 03:41 12/01/17 03:41 11/30/17 12/01/17 12/02/17 05:59 05:59 05:59 Intake Total 750 850 Output Total 1800 1300 Balance -1050 -450 - Physical Exam Constitutional: no apparent distress Eyes: PERRL Ears, Nose, Mouth, Throat: moist mucous membranes, hearing normal Cardiovascular: regular rate and rhythym, edema Respiratory: reduced air movement Gastrointestinal: normoactive bowel sounds, soft, non-tender abdomen Skin: warm Musculoskeletal: generalized weakness Neurologic: AAOx3 Psychiatric: interacting appropriately, not anxious Lymph, Heme, Immunologic: No petechiae ICD10 Worksheet Patient Problems: Problems Problem Status Onset Breast cancer Acute Hypoxemia Acute Peripheral edema Acute Primary localized osteoarthritis of right knee Acute
--- NOTE | 2017-12-01 12:19 | ASMTCMCOM ---
CM Note CM Note Notes: Chart reviewed. Discussed in clinical rounds. 74 year old female s/p right knee surgery that required washout. Patient would benefit from SNF for rehab. [facility]. Referral via [employer]. Likely ready to dc tomorrow or Monday. CM to follow. Date Signed: 12/01/2017 12:18 PM Electronically Signed By:Inna Sanchez RN
--- NOTE | 2017-12-01 13:37 | ASMTCMCOM ---
CM Note CM Note Notes: Addendum. previous note does NOT pertain to this patient , Wrong chart documentation done. This patient is self pay and to discharge independently for now. CM available should needs change. Date Signed: 12/01/2017 01:37 PM Electronically Signed By:Inna Sanchez RN
[2017-12-01] MEDS: HYDROcodone/CPM TUSSIONEX 5 ML UDSYR PO PRN (21:20)
[2017-12-01] MEDS: METRONIDAZOLE 0.75 % 45 GEL TP SCH (21:35)
[2017-12-02 05:08] LABS: PLATELET COUNT 213 10^3/uL (150-400)
[2017-12-02] MEDS: LEVOTHYROXINE 137 MCG TAB PO SCH (05:44)
[2017-12-02] MEDS ORDERED: POTASSIUM CL 10 MEQ TAB PO ONE (07:40)
[2017-12-02] MEDS ORDERED: predniSONE 20 MG TAB PO SCH (09:00)
[2017-12-02] MEDS: PRESERVISION AREDS2 FORMULA EYE VIT 1 EACH PO SCH (09:44)
[2017-12-02] MEDS: FUROSEMIDE 20 MG TAB PO SCH (09:44)
[2017-12-02] MEDS: ENOXAPARIN 40 MG/0.4 ML SYR SC SCH (09:45)
--- NOTE | 2017-12-02 12:25 | PDHOMEO2F ---
Home Oxygen Face to Face Home Orders: I certify that a physician or a nurse practitioner or physician's legal executive assistant has had a [id number] encounter with this patient on the date of this order due to the diagnosis listed, which relates to the primary reason the patient requires home oxygen. Alternative treatments have been tried, or considered, and deemed ineffective. It is anticipated that supplemental oxygen will result in improvement with treatment. Home oxygen qualifying diagnosis: HYPOXEMIA SpO2 on room air (%): 86 Frequency of home oxygen needed: continuous Home oxygen liters per minute: 2 Home oxygen delivery device: nasal cannula Concentrator: Yes E-tanks for mobility and back up: Yes If ordering portable O2, is the patient mobile in the home?: Yes I certify that, based on these findings, the home oxygen is medically necessary for this patient for the following length of time. Length of time home oxygen needed: 99 years
--- NOTE | 2017-12-02 12:31 | SOAPPROG ---
SOAP Progress Note Assessment/Plan: Assessment/Plan: 62yo w Stage IIA ER+/HER2+ beast cancer on oenoadjuvant TCHP who p/w hypoxia likely due to taxotere pneumonitis 1. Pneumonitis - improved w steroids fortunately, done w chemo d/c home today w outpt follow up 2. ER+/HER2+ breast cancer - s/p neoadjuvant chemo plans surgery w Dr Best adjuvant treatment will somewhat depend on final path 3. Anemia - chemo induced; follow 12/02/17 12:33 Objective: Vital Signs Temp Pulse Resp BP Pulse Ox 36.4 C 103 H 20 136/84 H 89 L 12/02/17 08:00 12/02/17 08:00 12/02/17 08:00 12/02/17 08:00 12/02/17 08:00 Laboratory Results 12/02/17 04:45 12/02/17 04:45 12/01/17 12/02/17 12/03/17 05:59 05:59 05:59 Intake Total 850 1100 Output Total 1300 2500 Balance -450 -1400 ICD10 Worksheet Patient Problems: Problems Problem Status Onset Breast cancer Acute Hypoxemia Acute Peripheral edema Acute Primary localized osteoarthritis of right knee Acute
--- NOTE | 2017-12-02 12:35 | PDDCSUM ---
Discharge Summary Discharge Summary: This is a 62 yo Female with hx of bilateral breast cancer who was admitted Taxotere induced pneumonitis. She was also found to have e/o of pneumonia and pulm edema. She was treated accordingly. She has completed her abx. She will be on a steroid taper. She is on Lasix 20mg daily. TTE was c/w preserved LVEF. She has f/u with Oncology on Monday. Please recheck labs at that time, specifically her K has been a little low, but now that diuresis has slowed, she may not need ongoing replacement. she has been set up with home O2 DDX: #Drug induced Hypersensitivity Pneumonitis #Pulmonary Edema, Pedal Edema #Possible CAP #Bilateral Breast cancer #Chemotherapy induced pancytopenia -s/p 1 unit PRBC transfusion #Hypokalemia #Weakness and Deconditioning Exam: VSS NAD AAOX3 RRR CTA B S/NT/ND TRACE LE EDEMA MEDS: SEE MED REC F/U: PER ABOVE TOTAL TIME SPEN ON D/C IS 40 MINS
[2017-12-02 13:09] VITALS: BP 123/70; PULSE 85; RESP 18; TEMP 97.9; O2SAT 94
--- NOTE | 2017-12-02 14:25 | ASDISCHSUM ---
Discharge Information Plan Status:Home with No Needs Medically Cleared to Leave:12/02/2017 Discharge Date:12/02/2017 CM D/C Disposition:Home, Routine, Self-Care ADT D/C Disposition:Home, Routine, Self-Care Projected Discharge Date:12/02/2017 11:00 AM Transportation at D/C:Family Discharge Delay Reason: Follow-Up Date:12/02/2017 11:00 AM Discharge Slot: Final Diagnosis: Placement Information Referral Type:*Care Home/SNF Referral ID:[id number] Provider Name: Address 1: Phone Number: Address 2: Fax Number: City: Selection Factors: State: Patient Contact Information Contact Name:JENNIFER Relationship: Address:[address] City:[place] Alternate Phone: [facility]/Zip Code:[place] [address] Email: Financial Information Financial Class:Self-Pay Primary Plan Desc:SELF PAY Primary Plan Number: Secondary Plan Desc: Secondary Plan Number: Assessment Information [facility] CM Progress Note CM Note CM Note Notes: Patient admitted for SOB. She has breast cancer and is currently receiving chemo (to which she is responding well) with Dr Graham. Oncology and Surgery will both see her. PT has been ordered and is pending. Patient lives with her and is employed. Case Management will follow for discharge planning. Date Signed: 11/29/2017 01:32 PM Electronically Signed By:Sydney Madera RN [facility] CM Progress Note CM Note CM Note Notes: CM spoke w/ PT and they are recommending HC at this time. Annika from financial services stopped by to evaluate pt today. Pt is in the process of enrolling into [employer]. Pt reports that she will eventually be re-enrolled with [employer]. Because pt is self pay. Pt will not qualify for any outpatient services at this time. CM met w/ pt for dispo planning. CM went over the recommendation by PT. Pt will most likely d/c independent when medically stable. CM available for changes. Plan: Independent Date Signed: 11/30/2017 04:07 PM Electronically Signed By:NADIA Lopez [facility] Progress Note CM Note CM Note Notes: Chart reviewed. Discussed in clinical rounds. 74 year old female s/p right knee surgery that required washout. Patient would benefit from SNF for rehab. [facility] Likely ready to dc tomorrow or Monday. CM to follow. Date Signed: 12/01/2017 12:18 PM Electronically Signed By:Inna Sanchez RN [facility] Progress Note CM Note CM Note Notes: Addendum. previous note does NOT pertain to this patient , Wrong chart documentation done. This patient is self pay and to discharge independently for now. CM available should needs change. Date Signed: 12/01/2017 01:37 PM Electronically Signed By:Inna Sanchez RN Case Management Discharge Plan Note Case Management Discharge Discharge Order Complete? Answers: Yes Patient to Obtain Answers: via Family Medications Transportation Arranged Answers: Family/Friends Family Notified Answers: Yes Discharge Comments Notes: Pt is discharging home today with her family and no CM needs. She will f/u with oncology on Monday. Date Signed: 12/02/2017 02:23 PM Electronically Signed By:CLAUDIA Suarez Intervention Information
--- NOTE | 2017-12-02 14:26 | ASMTLACE ---
LACE Length of stay for Answers: 3 days current admission Acuity / Level of Answers: Yes Care: Did the patient have an inpatient admission? Comorbidities - select Answers: Any tumor (including all that apply lymphoma or leukemia) Other Notes: hypothyroid # of Emergency department Answers: 1-2 visits in the last 6 months Score: 10 Date Signed: 12/02/2017 02:25 PM Electronically Signed By:CLAUDIA Suarez
[2017-12-05] MEDS ORDERED: predniSONE 20 MG TAB PO SCH (09:00)
[2017-12-08] MEDS ORDERED: predniSONE 20 MG TAB PO SCH (09:00)
[2017-12-11] MEDS ORDERED: predniSONE 10 MG TAB PO SCH (09:00)
== END 2017-12-02 15:46 | disposition home or self-care (01) | DRG 196 ==
LOC: INTOOBSV 17:23 → F2W 19:27 → OBSVTOIN 11-29 15:00 → F1N 12-01 18:44
PROVIDERS: ADMIT Student in an Organized Health Care Education/Training Program; ATTEND Student in an Organized Health Care Education/Training Program
PROC: 30233N1 Transfusion of Nonautologous Red Blood Cells into Peripheral Vein, Percutaneous Approach (ICD-10-PCS; principal; 2017-11-29)
DX: J67.9 Hypersensitivity pneumonitis due to unspecified organic dust (principal); D61.810 Antineoplastic chemotherapy induced pancytopenia; C50.911 Malignant neoplasm of unspecified site of right female breast; T45.1X5A Adverse effect of antineoplastic and immunosuppressive drugs, initial encounter; E78.5 Hyperlipidemia, unspecified; E03.9 Hypothyroidism, unspecified; E87.6 Hypokalemia; Z88.0 Allergy status to penicillin; Z96.651 Presence of right artificial knee joint; Z85.3 Personal history of malignant neoplasm of breast
CPT/HCPCS: 82947-QW; 97110-GP; 97116-GP; 97161-GP; G0378; J1650; J1940; J1956; J2930; J7512; P9016; Q9967

== ENCOUNTER 2017-12-22 10:52 | Inpatient (IN) | payer OTHER ==
[2017-12-22] MEDS ORDERED: ACETAMINOPHEN 325 MG TAB PO PRN (13:23)
[2017-12-22] MEDS ORDERED: ONDANSETRON DISINTEGRATING 4 MG TAB PO PRN (13:23)
[2017-12-22] MEDS ORDERED: ONDANSETRON 4 MG/2 ML VIAL IVP PRN (13:23)
[2017-12-22] MEDS ORDERED: PROCHLORPERAZINE MALEATE 10 MG TAB PO PRN (14:48)
[2017-12-22] MEDS ORDERED: TRASTUZUMAB IV SCH (15:00)
[2017-12-22] MEDS ORDERED: PROTOCOL POTASSIUM 1 DOSE MISC PRN (15:00)
--- NOTE | 2017-12-22 15:00 | PDGENHP ---
History and Physical History and Physical: CC: Dyspnea HISTORY: This patient is a 8-year-old woman with breast cancer diagnosed in June 2017, grade 3 lobular carcinoma or receptor positive x3. She was started on neoadjuvant therapy with Taxotere and carboplatin and has received trastuzumab and pertuzumab. Recently she had been here at this hospital with shortness of breath and pulmonary infiltrates. She had been treated at that time with some steroid and antibiotics but overall was felt most likely to have a Taxotere induced pneumonitis. She had tapered off of steroid and stop antibiotics, initially had felt improved but symptoms returned and she has had 1 more short treated room taper of steroids since then that again and had some impact but symptoms returning as the doses come down. She was seen 2 days ago [facility] where she had progressive shortness of breath. A CT scan was done at the [facility], today showing worsening pulmonary infiltrates, bilateral pleural effusions, and now what looks like a pericardial effusion as well. She has had no fevers. She has no upper respiratory infection type symptoms. She has nothing that sounds like a cardiac symptom per se, no pleuritic pain. She has some swelling of both legs. She has a cough with no sputum. No headache or sinus pains ROS: She does admit to some neuropathy symptoms and hands and feet from her chemotherapy that is persisting. A comprehensive 10 system review revealed no other significant findings PAST MEDICAL HISTORY: breast cancer as above Total knee replacement Hypothyroidism No history of prior lung disease, no history of heart kidney liver or neurologic disease FAMILY MEDICAL HISTORY: Lots of lung breast and prostate cancer and 1 cancer this sounds like a primary brain malignancy SOCIAL HISTORY: lives with her who is here at the bedside other Has never smoked MEDICATIONS: The patients list has been reconciled by our clinical pharmacist in the EMR. I have reviewed the list and ordered appropriate medicines. PHYSICAL EXAMINATION: Vital Signs: Stable without fever Examination: General: alert, oriented, good mentation, relaxed, breathing nasal cannula oxygen Skin: warm, dry, good color, no rash HEENT: normal Neck: JVD is noted, no palpable mass or adenopathy Resps: Mildly labored Lungs: Diffuse dry rales in the lower 2/3 of right and left lung boggs Heart: regular, 1/6 systolic murmur along the sternal border Abdomen: soft, nondistended, nontender, +BS, no mass Upper Extremities: normal Lower Extremities: 1+ edema is palpable in both legs from the upper calf to the ankles, warm No Bleeding or bruising Neurologic: normal speech/language, normal gas line installer, no focal weakness IV site: looks normal LABORATORY DATA: Blood tests were done at the [facility] today On CBC she has a white blood cell count 1 hemoglobin 9 platelets 216 Chemistry panel shows a potassium of 3.4 otherwise unremarkable RADIOLOGY STUDIES: CT scan was done at the [facility] today and I did review the images with Dr. Mathews: There is obvious diffuse infiltrative disease throughout both lungs, with moderate bilateral pleural effusions without obvious evidence of loculation, and also with the presence of pericardial effusion apparent 12 LEAD EKG: Ordered and pending ASSESSMENT: 1-progressive hypoxemic respiratory failure with recently diagnosed Taxotere induced pneumonitis as the most likely cause 2-newly identified bilateral pleural effusions and pericardial effusion, likely related to above 3-no fevers or definite new symptoms to suggest infection but will want to do further testing be sure no overlying infection 4-jugular venous distension and peripheral edema indicate some right heart failure, suspected maybe some pulmonary hypertension at this point 5-breast cancer, lobular, diagnosed in June receiving neoadjuvant chemotherapy recently with planned bilateral mastectomies upcoming, currently delayed due to her respiratory illness 6-anemia of malignancy and chemotherapy 2-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 Roy is recommending prednisone at total dose of 1 milligram/kilogram daily at this time divided the twice daily dosing with recommendation for longer term care with this medication until she is clearly resolved -continue Lasix diuresis but I will increase the dose to 40 mg daily at this time -potassium replacement -Dr. Henri Garcia has been consulted from pulmonology I have reviewed the patient's case in detail with Dr. Freddy Mathews I have reviewed the patient's past medical records as part of this assessment, including cancer care clinic records and previous hospital admission records from this hospital
--- NOTE | 2017-12-22 15:12 | GCON ---
[f rep st] CONSULTATION MEDICAL ONCOLOGY FOLLOWUP CONSULTATION. 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 RECOMMENDATIONS: 1. I would place the patient on full dose of steroids. She is 90 kg. Therefore, I would place her on 45 mg of prednisone by mouth twice a day. 2. If the she fails to respond adequately to steroids in the next couple of days, she will likely ne ed a bronchoscopy. I spoke with Dr. Henir Garcia regarding consultation. 3. The patient's scan from today shows bilateral pleural effusions in addition to exacerbation of he r interstitial pneumonitis and also shows a pericardial effusion. I have ordered an echocardiogram f or further evaluation of her pericardial effusion. 4. The patient was to have had bilateral mastectomies for her bilateral breast cancer, but at the mo ment is on hold pending improvement in her lung function. ASSESSMENT: This 62-year-old white female was diagnosed with bilateral breast cancer in May of 2017. 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 She has undergone neoadjuvant chemotherapy with TCH plus pe rtuzumab. She finished neoadjuvant therapy at the end of October 2017. 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 She was initially placed on high-dose steroids and this showed improvement. She had an attemp humberto rapid taper which unfortunately has resulted in an exacerbation of her underlying symptoms. Because of increasing shortness of breath and increasing oxygen requirement, she was seen in the offi ce today and a CT of the chest was obtained which revealed worsening bilateral pneumonitis as well as bilateral pleural effusions and pericardial effusions. She is now admitted for further evaluation a nd treatment. I suspect this is still likely related to pneumonitis from her Taxotere. Apparently, she will need a much slower taper. If she fails to respond to full dose of steroids, then she will likely need a br onchoscopy to make sure we are not missing something such as underlying malignancy or possible opport unistic infection. The patient's planned bilateral mastectomies are on hold pending improvement in h er lung function. PAST MEDICAL HISTORY: Essentially otherwise unremarkable. FAMILY HISTORY: Remarkable for paternal grandmother with ovarian cancer at age 57. Her father had l marilynn cancer at age 61. Her maternal grandmother had breast cancer in her 70s and a maternal grandfath er had prostate cancer. SOCIAL HISTORY: She does not smoke. She drinks alcohol rarely. She has been an activities coordina tor at [employer] and she has 4 children. REVIEW OF SYSTEMS: Is primarily remarkable for her increased shortness of breath. Her 10 system rev iew is otherwise unremarkable. PHYSICAL EXAMINATION: GENERAL: Shows a pale but alert woman who appears to be oriented x3. Her hus band is at the bedside. HEENT: Shows pallor. LUNGS: Reveal diffuse rales bilaterally. CARDIAC: Shows regular rhythm. LAB: Her CBC today shows a white count of 10.29, with a hemoglobin of 9.6 and a platelet count of 21 9,000. Her chemistries show normal sodium 142, normal creatinine 0.7, slightly low potassium at 3.48 . Thank you very much for allowing us to participate in this pleasant woman's oncologic care. I will alex allen forward to assisting with her management during this hospitalization beyond. /[id number]/MODL
--- NOTE | 2017-12-22 16:05 | ECHO ---
[email or web address] [address] [address] Main: [phone] Fax: Transthoracic Echocardiogram Name: CA ÁLVAREZ MR#: [id number] Study Date: 12/22/2017 Study Time: 02:59 PM Date of : 1955 Age: 62 year(s) Height: 172.7 cm (68 in.) Weight: 91.63 kg (202 lb.) BSA: 2.05 m2 Gender: Female Examination: Echo Indication: Cardiac: dyspnea, Breast CA, Eval for pericardial effusion Image Quality: Contrast: Requested by: Israel Allen BP: 127 mmHg/84 mmHg Heart Rate: Rhythm: Normal sinus rhythm Indication: Cardiac: dyspnea, Breast CA, Eval for pericardial effusion Procedure Staff Gold Burnisher: Dontrell Man RDCS Reading Physician: Kristel Murrell MD Requesting Provider: Conclusions: Normal size left ventricle. Mild concentric LV hypertrophy. Normal global systolic LV function. EF is 68 %. No regional wall motion abnormality. Normal size right ventricle. Normal RV function. Mild tricuspid regurgitation is present. The pulmonary artery pressure is normal. No echocardiographic evidence of hemodynamic compromise. There is a small circumferential pericardial effusion with no evidence of right sided collapse or tamponade. There is a moderate to large pleural effusion with a majority of the pleural fluid posteriorly.. Compared with 11/2017 pericardial effusion is new Measurements: Chambers Valvular Assessment AV/MV Valvular Assessment TV/PV Normal Normal Normal Name Value Range Name Value Range Name Value Range Ao Saskia (MM): 3.2 cm (2.2 cm-3.7 MV E Vmax: 0.85 m/s ( - ) TR Vmax: 2.66 mm/s ( - ) cm) MV A Vmax: 0.84 m/s ( - ) TR PGmax: 28 mmHg ( - ) IVSd (2D): 1.1 cm (0.6 cm-1.1 MV E/A: 1.01 ( - ) syst. PAP: 33 mmHg ( - ) cm) PV Vmax: 1.11 m/s (0.6 m/s-0.9 LVDd (2D): 5.5 cm (3.9 cm-5.3 m/s) cm) PV PGmax: 5 mmHg ( - ) LVDs (2D): 3.4 cm (2.1 cm-4 cm) LVPWd (2D): 1.2 cm ( - ) LVEF (2D): 68 (>=54 %) Patient: CA ÁLVAREZ Study Date: 12/22/2017 Page 1 of 2 02:59 PM Continued Measurements: Chambers Valvular Assessment AV/MV Valvular Assessment TV/PV Name Value Name Value Name Value LADs Lon.4 cm MV E/E' Septal: 15.90 CVP (est.): 5 mmHg LA Area: 19.8 cm2 MV E/E' Lateral: 8.40 LA Volume: 81 ml LA Volume Index: 39.5 ml/m2 TAPSE: 3.0 cm Findings: Left Ventricle: Normal size left ventricle. Mild concentric LV hypertrophy. Normal global systolic LV function. EF is 68 %. No regional wall motion abnormality. Right Ventricle: Normal size right ventricle. Normal RV function. Left Atrium: The left atrium is normal in size. Right Atrium: The right atrium is normal in size. Mitral Valve: The mitral valve is normal in appearance and function. Trivial mitral valve regurgitation. Aortic Valve: The aortic valve is tri-leaflet. Minimal aortic cusp calcification is noted. There is no aortic valve regurgitation. Tricuspid Valve: The tricuspid valve appears normal. Mild tricuspid regurgitation is present. The pulmonary artery pressure is normal. Pulmonic Valve: The pulmonic valve is normal in appearance and function. Aorta: The aorta is normal. Pericardium: No echocardiographic evidence of hemodynamic compromise. There is a small circumferential pericardial effusion with no evidence of right sided collapse or tamponade. There is a moderate to large pleural effusion with a majority of the pleural fluid posteriorly.. (No Signature Object) Patient: CA ÁLVAREZ Study Date: 12/22/2017 Page 2 of 2 02:59 PM [id number]
[2017-12-22] MEDS: predniSONE 5 MG TAB PO SCH (16:38)
[2017-12-22] MEDS: predniSONE 20 MG TAB PO SCH (16:39)
--- NOTE | 2017-12-22 17:04 | PDMN ---
Medical Necessity Medical necessity: Patient meets inpatient criteria per physician note and MCG M -540 Pleural Effusion (sat 89% on RA, symptomatic mod. bilateral pleural effusions, worsening Taxotere-induced pneumonitis, new pericarditis per echo; R heart failure/JVD noted; anemia of malignancy and chemotherapy; hx of bilat breast cancer/recent chemo and steroid course for pneumonitis; awaiting bilat mastectomies; anticipated LOS > 2 midnights for ongoing eval and treatment, including supplemental O2, diuresis with Lasix, steroids.)
--- NOTE | 2017-12-22 18:39 | GCON ---
[f rep st] CONSULTATION PULMONARY CONSULTATION. DATE OF CONSULTATION: 12/22/2017 REASON FOR CONSULTATION: Bilateral pulmonary infiltrates consistent with a drug-induced pneumonitis versus other etiologies in a patient with breast cancer, on chemotherapy. HISTORY: The patient is a very pleasant 62-year-old who was diagnosed with breast cancer in 2016. She had adenocarcinoma of the right breast and DCIS in the left breast. She was HER2 pos itive. She was started on neoadjuvant chemotherapy. This has included Taxotere, carboplatin, trastu zumab and pertuzumab. She has received, I believe, 6 cycles of this. Approximately 3 weeks ago, she was admitted to the hospital with increased shortness of breath and pulmonary infiltrates. She was felt to have a Taxotere-induced pneumonitis. She was started on steroids and hospitalized for 3 days , with improvement in her symptoms. Prednisone was relatively rapidly tapered. She did well for the 1st couple of weeks out of the hospital, but over the last week has had increasing shortness of jamia th. She was seen in clinic today. A CT scan of the chest was done. This showed significant increased bi lateral pulmonary infiltrates compared to previous scans done at [facility]. The s can also showed increased bilateral pleural effusions and a small pericardial effusion. Cardiac echo has been done. Left and right heart function is normal. The pericardial effusion is not associated with tamponade physiology. She does have a dry cough and is short of breath. She has had no fevers , chills, or sweats. She is not bringing up any purulent sputum. She has no chest pain. PAST MEDICAL HISTORY: Largely unremarkable. She has been quite healthy. There is a history of hypo thyroidism. She is status post previous left total knee replacement. SOCIAL HISTORY: The patient is , has a very supportive , 4 children. She is a never s moker. Significant alcohol is negative. She works at [employer] in the [employer] department a nd has done so for over a decade. FAMILY HISTORY: Positive for breast cancer and other malignancies. REVIEW OF SYSTEMS: A 10-point review of systems is negative except as outlined above. In addition, she has had edema of the lower extremities, left greater than right. She has been on diuretics for t his. There is no history of thromboembolic disease. She has no history of underlying heart disease, renal disease, or other issues. DRUG ALLERGIES: Penicillins. PHYSICAL EXAMINATION: GENERAL: Reveals a pleasant woman who is resting comfortably in bed. Oxygen is in place at 2 L. VITAL SIGNS: Blood pressure is 120/56, heart rate 80 and regular. She is afebr ile. Respiratory rate is 20. HEENT: Unremarkable for lymphadenopathy or thyromegaly. There is jasmin e alopecia secondary to chemotherapy. CHEST: Decreased breath sounds and excursions with bilateral rales, most prominent posteriorly. There are no consolidative changes. HEART: Regular in rate and rhythm. There is a soft systolic murmur, no gallop, no rub. P2 appears normal. ABDOMEN: Soft, non tender. Bowel sounds are present. EXTREMITIES: Remarkable for 1+ edema on the right and 1 to 2+ ed scott on the left. There are no obvious cords. NEUROLOGIC: Examination and mentation is within mili l limits. DATABASE: CT scan of the chest is as outlined above. This was personally reviewed with nabeel Brown over electronically from the [facility]. Laboratory was done earlier today as an outpatient. White blood cell count is 10,000, hematocrit 30, platelets are 219,000. There is a slight shift to the left. Sodium is 142, potassium 3.4, BUN 18 w ith creatinine 0.7, glucose is 93, liver function studies normal, albumin 2.9. ASSESSMENT: Pulmonary infiltrates with increasing shortness of breath, rales, and hypoxemia. 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 This would appear to be related to a relatively rapid steroid taper following her previous hospitalization for t he same issue 3 weeks ago. Congestive heart failure seems distinctly unlikely as cardiac echo today is within normal limits. However, Taxotere can also be associated with capillary weak syndrome with pleural effusions and peripheral edema. This may be steroid responsive, as well. Continuing Lasix d iuresis would be indicated. Secondary to her chemotherapy and recent steroid therapies, opportunisti c infection is also possible, including Pneumocystis carinii pneumonia and other etiologies. Broncho scopy may be of benefit to exclude these, if she does not respond rapidly to steroids alone. There i s no indication of a bacterial infection at this time. However, immunosuppressants may affect her ab ility to her respond in usual fashion to infection. PLAN AND RECOMMENDATIONS: Prednisone will be continued at 45 mg p.o. twice daily. Lasix will be con tinued at 40 mg per day. Lovenox will be held in the morning initially in case bronchoscopy is requi red tomorrow. I will discuss this with Oncology and the hospitalist in the morning. Procalcitonin w ill be drawn in the morning with her a.m. labs. All of the above was discussed with the patient and her . /[id number]/MODL
[2017-12-22] MEDS: PRESERVISION AREDS2 FORMULA EYE VIT 1 EACH PO SCH (20:45)
[2017-12-22] MEDS: CHOLECALCIFEROL VIT D3 2,000 UNITS TAB/CAP PO SCH (20:45)
[2017-12-22] MEDS: ZOLPIDEM TARTRATE 5 MG TAB PO PRN (20:45)
[2017-12-22] MEDS: CALCIUM CARB W/VIT D 500 MG TAB PO SCH (20:46)
[2017-12-22] MEDS: METRONIDAZOLE 0.75% TP SCH (23:06)
[2017-12-23] MEDS: LEVOTHYROXINE 137 MCG TAB PO SCH (04:39)
[2017-12-23 05:20] LABS: PLATELET COUNT 204 10^3/uL (150-400)
[2017-12-23] MEDS ORDERED: ENOXAPARIN 40 MG/0.4 ML SYR SC SCH (09:00)
[2017-12-23] MEDS: predniSONE 20 MG TAB PO SCH ×2 (09:14→18:26)
[2017-12-23] MEDS: predniSONE 5 MG TAB PO SCH ×2 (09:42→18:26)
[2017-12-23] MEDS: FUROSEMIDE 40 MG TAB PO SCH (11:30)
[2017-12-23] MEDS: POTASSIUM CL 10 MEQ TAB PO SCH (11:30)
--- NOTE | 2017-12-23 12:41 | SOAPPROG ---
SOAP Progress Note Assessment/Plan: Assessment: Pulmonary infiltrates. Likely secondary to pneumonitis from chemotherapy/ Taxotere, possibly other agents as well. On steroids. Chest x-ray pending. Doubt bacterial infection or PCP. Procalcitonin is normal and should be elevated with both these infections. Chest x-ray pending. Will consider bronchoscopy later today with transbronchial biopsies primarily to exclude processes other than a drug-induced pneumonitis. Plan: Await chest x-ray. Hold Lovenox and p.o. Intake. Possible bronchoscopy with biopsies today at approximately 3:[address] Yanez, the patient and her . Subjective: Remains short of breath. Oxygen increased to 5 L. Desaturates with ambulation in the room. No chest pain. Not bringing up any sputum. Objective: Vital Signs Temp Pulse Resp BP Pulse Ox 36.7 C 88 20 133/71 H 93 12/23/17 08:49 12/23/17 08:49 12/23/17 09:11 12/23/17 08:49 12/23/17 09:11 Microbiology 12/22/17 16:45 Respiratory Panel (PCR) - Final Nasal, Sinus - Swab No Organism Detected Laboratory Results 12/23/17 04:56 12/23/17 04:56 12/22/17 12/23/17 12/24/17 05:59 05:59 05:59 Intake Total 250 Balance 250 Laboratory Tests 12/23/17 04:56 Calcium 8.6 Total Bilirubin 0.4 AST 19 ALT 39 Albumin 2.6 L Procalcitonin 0.04 CXR ordered, pending Physical Exam - Physical Exam General Appearance: alert, no apparent distress, other (Up in chair) EENT: PERRL/EOMI Neck: normal inspection (No obvious JVD) Respiratory: decreased breath sounds, rales (Posteriorly at bases and extending at least fpc up, left greater than right) Cardiac/Chest: regular rate, rhythm, No gallop Abdomen: normal bowel sounds, non-tender, soft Skin: warm/dry, pallor Extremities: pedal edema (Trace +, significantly decreased compared to yesterday.) Neuro/Psych: no motor/sensory deficits, alert, No cognition abnormalities ICD10 Worksheet Patient Problems: Problems Problem Status Onset Primary localized osteoarthritis of right knee Acute Hypoxemia Acute Peripheral edema Acute Breast cancer Acute
[2017-12-23] MEDS: CALCIUM CARB W/VIT D 500 MG TAB PO SCH ×2 (13:01→20:43)
[2017-12-23] MEDS: PRESERVISION AREDS2 FORMULA EYE VIT 1 EACH PO SCH ×2 (13:01→20:44)
[2017-12-23] MEDS: CHOLECALCIFEROL VIT D3 2,000 UNITS TAB/CAP PO SCH ×2 (13:01→20:44)
[2017-12-23] MEDS: MULTIVITAMINS 1 EACH TAB PO SCH (13:02)
[2017-12-23] MEDS ORDERED: LIDOCAINE 1% 300 MG/30 ML SDV ONE (13:39)
[2017-12-23] MEDS ORDERED: LIDOCAINE 2% JELLY 5 ML TUBE ONE (13:39)
[2017-12-23] MEDS ORDERED: EPINEPHrine 1 MG/10 ML SYR IVP ONE (13:41)
[2017-12-23] MEDS ORDERED: BENZOCAINE UNIT DOSE SPRAY HURRICAINE MM ONE (13:43)
[2017-12-23] MEDS ORDERED: fentaNYL 100 MCG/2 ML INJ ONE (15:30)
[2017-12-23] MEDS ORDERED: MIDAZOLAM 2 MG/2 ML VIAL ONE (15:31)
[2017-12-23] MEDS ORDERED: ALBUTEROL 3 ML DEYVIAL ONE ×2 (15:38→16:28)
--- NOTE | 2017-12-23 15:45 | HOSPPROG ---
Hospitalist Progress Note Assessment/Plan: # acute hypoxic respiratory failure- acutely worsening in the outpatient setting - s/p treatment with both steroids and antibiotics Chest x-ray ( personally reviewed and interpreted) and improved infiltrates overnight - oxygen saturations 95% on 4 L High suspicion for Taxotere induced pneumonitis - initiated on high dose steroids overnight- Lower suspicion for bacterial pneumonia secondary to procalcitonin is 0.04 - plan for bronchoscopy today with Pulmonary - continue IV Lasix - continue high-dose steroids # pulmonary infiltrates - as above concerning for possible pneumonitis versus infectious process - plan for bronchoscopy today for deep cultures and potential biopsy # breast cancer- s/p adjuvant chemotherapy # hypothyroidism-continue Synthroid replacement # prophylaxis hold Lovenox for bronchoscopy # diet NPO for bronchoscopy # disposition-greater than 2 midnights as the patient requires ongoing diagnostic workup for her progressive hypoxia and pulmonary infiltrates I have discussed the case with Dr. Garcia with a chest x-ray not showing improvement we will proceed with bronchoscopy this afternoon Subjective: Not feeling better Objective: Vital Signs Temp Pulse Resp BP Pulse Ox 36.7 C 75 22 H 124/72 H 95 12/23/17 14:29 12/23/17 14:29 12/23/17 14:29 12/23/17 14:29 12/23/17 14:29 Microbiology 12/22/17 16:45 Respiratory Panel (PCR) - Final Nasal, Sinus - Swab No Organism Detected Laboratory Results 12/23/17 04:56 12/23/17 04:56 12/22/17 12/23/17 12/24/17 05:59 05:59 05:59 Intake Total 250 Balance 250 - Physical Exam Constitutional: chronically ill appearing Eyes: anicteric sclera Ears, Nose, Mouth, Throat: moist mucous membranes Cardiovascular: regular rate and rhythym Respiratory: inspiratory crackles Gastrointestinal: normoactive bowel sounds Genitourinary: no bladder fullness Skin: warm Musculoskeletal: No asymmetric calves Neurologic: AAOx3 Psychiatric: interacting appropriately Lymph, Heme, Immunologic: no cervical LAD ICD10 Worksheet Patient Problems: Problems Problem Status Onset Breast cancer Acute Hypoxemia Acute Peripheral edema Acute Primary localized osteoarthritis of right knee Acute
--- NOTE | 2017-12-23 15:57 | SOAPPROG ---
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 CXR unchanged today. Bronch today. Cont steroids. * Clinical IIA ILC right breast: ER+/HER2+ s/p neoadjuvant TCH+P completed 11/07. Maintenance Herceptin due 12/25/17 (100 mg, 6 mg/kg). * Left DCIS. Await bronch results. Cont steroids. Maintenance Herceptin next week (ECHO normal). 12/23/17 15:51 Subjective: No change in nonproductive cough, dyspnea. Tolerating steroids reasonably well. No CP. Improvement in LE edema. O: VS reviewed. Gen: fatigued appearing. NAD. Lungs: bilat crackles L>R. CV: RRR, bilat LE edema. Skin: left port not accessed, nontender, no erythema. Laboratory Tests 12/23/17 12/23/17 04:56 04:56 WBC 9.78 H Hgb 8.9 L Hct 28.1 L Plt Count 204 Creatinine 0.7 Total Bilirubin 0.4 AST 19 ALT 39 Alkaline Phosphatase 49 Objective: Vital Signs Temp Pulse Resp BP Pulse Ox 36.7 C 75 22 H 124/72 H 95 12/23/17 14:29 12/23/17 14:29 12/23/17 14:29 12/23/17 14:29 12/23/17 14:29 Microbiology 12/22/17 16:45 Respiratory Panel (PCR) - Final Nasal, Sinus - Swab No Organism Detected Laboratory Results 12/23/17 04:56 12/23/17 04:56 12/22/17 12/23/17 12/24/17 05:59 05:59 05:59 Intake Total 250 Balance 250 ICD10 Worksheet Patient Problems: Problems Problem Status Onset Breast cancer Acute Hypoxemia Acute Peripheral edema Acute Primary localized osteoarthritis of right knee Acute
[2017-12-23] MEDS ORDERED: MIDAZOLAM 10 MG/2 ML VIAL IVP ONE (16:31)
[2017-12-23] MEDS ORDERED: fentaNYL 100 MCG/2 ML INJ IVP ONE (16:31)
[2017-12-23] MEDS ORDERED: ALBUTEROL 3 ML DEYVIAL IH ONE (17:00)
--- NOTE | 2017-12-23 17:02 | GPN ---
[f rep st] PROCEDURE NOTE DATE OF PROCEDURE: 12/23/2017 PROCEDURE: Bronchoscopy. REASON FOR BRONCHOSCOPY: Diffuse pulmonary infiltrates; rule-out drug-induced pneumonitis versus inf ection. DESCRIPTION OF PROCEDURE: The procedure was performed in the endoscopy unit. Informed consent was o btained from the patient. Appropriate time-out was performed. Topical anesthesia included a small a mount of Hurricaine spray and 1% lidocaine to the posterior oropharynx. 1% lidocaine was used to ane sthetize the vocal cords and lower tracheobronchial tree. Approximately 25 mL of 1% lidocaine total was used. Conscious sedation included 5 mg of Versed and 125 mcg of fentanyl. The fiberoptic bronchoscope was passed via bite block orally into the larynx. The vocal cords were i dentified. They moved normally with respiration and cough. The bronchoscope was then advanced into the trachea and then lower tracheobronchial tree bilaterally. All areas were observed to at least th e segmental level. Anatomy was normal bilaterally. There were no endobronchial lesions. There was mild erythema. Secretions were relatively minimal, with some loose secretions present bilaterally. These were easily removed with suction and lavage. Bilateral bronchoalveolar lavage was performed wi th samples combined. Following this, transbronchial biopsies were taken from the right lower lobe un carlos fluoroscopic guidance. Three biopsies were obtained. A fourth was not done secondary to some bleeding with the 3rd biopsy. No epinephrine was required. Estimated blood loss was approximately 5 mL. There was no evidence of a pneumothorax by fluoroscopy at the end of the procedure. A chest x- ray is pending at the time of this dictation. Oxygen saturations on supplemental oxygen and vital si gns remained stable throughout the procedure. The patient did have some coughing toward the end of t he procedure, which persisted into recovery. ASSESSMENT: 1. Normal endobronchial anatomy without significant secretions. There were no endobronchial lesions . 2. Bilateral pulmonary infiltrates. Query etiology. Drug-induced pneumonitis versus infection is b eing excluded. Appropriate samples were sent to the laboratory for cultures and pathology. /[id number]/MODL
--- NOTE | 2017-12-23 19:36 | ASMTCMCOM ---
CM Note CM Note Notes: Pt admtd for pericardial effusion and acute hypoxic respiratory failure. Pt has history of breast cancer, is followed by Dr Graham and receives chemo treatments. Pt had bronchoscopy today; 4 biopsies obtained and sent for testing. Pt also had ECHO today. Pt lives with in [place]. Pt has planned bilateral mastectomies coming up but are delayed due to respiratory illness. Exact DC needs unknown at this time; Home w/family vs. HHC vs. TBD. CM to follow Date Signed: 12/23/2017 07:35 PM Electronically Signed By:Eda Gonzalez RN
[2017-12-23] MEDS: METRONIDAZOLE 0.75% TP SCH (20:46)
[2017-12-23] MEDS: ZOLPIDEM TARTRATE 5 MG TAB PO PRN (20:53)
[2017-12-23] MEDS ORDERED: POTASSIUM CL 10 MEQ TAB PO ONE (21:03)
[2017-12-24] MEDS: LEVOTHYROXINE 137 MCG TAB PO SCH (06:12)
[2017-12-24] MEDS: predniSONE 5 MG TAB PO SCH ×2 (09:18→17:35)
[2017-12-24] MEDS: MULTIVITAMINS 1 EACH TAB PO SCH (09:18)
[2017-12-24] MEDS: predniSONE 20 MG TAB PO SCH ×2 (09:18→17:35)
[2017-12-24] MEDS: FUROSEMIDE 40 MG TAB PO SCH (09:19)
[2017-12-24] MEDS: PRESERVISION AREDS2 FORMULA EYE VIT 1 EACH PO SCH ×2 (09:19→21:16)
[2017-12-24] MEDS: POTASSIUM CL 10 MEQ TAB PO SCH (09:19)
[2017-12-24] MEDS: CALCIUM CARB W/VIT D 500 MG TAB PO SCH ×2 (09:19→21:16)
[2017-12-24] MEDS: CHOLECALCIFEROL VIT D3 2,000 UNITS TAB/CAP PO SCH ×2 (09:20→21:16)
[2017-12-24] MEDS: ENOXAPARIN 40 MG/0.4 ML SYR SC SCH (12:25)
--- NOTE | 2017-12-24 14:39 | HOSPPROG ---
Hospitalist Progress Note Assessment/Plan: # acute hypoxic respiratory failure- acutely worsening in the outpatient setting - s/p treatment with both steroids and antibiotics Chest x-ray ( personally reviewed and interpreted) bilateral infiltrates and effusions - oxygen saturations 96% on 3L High suspicion for Taxotere induced pneumonitis - initiated on high dose steroids - slight improvement today subjectively Lower suspicion for bacterial pneumonia secondary to procalcitonin is 0.04 - s/p bronchoscopy - washings and cx pending - continue IV Lasix - continue high-dose steroids # pulmonary infiltrates - as above concerning for possible pneumonitis versus infectious process - plan for bronchoscopy today for deep cultures and potential biopsy # breast cancer- s/p adjuvant chemotherapy # hypothyroidism-continue Synthroid replacement # prophylaxis Lovenox # diet regular # disposition-greater than 2 midnights as the patient requires ongoing diagnostic workup for her progressive hypoxia and pulmonary infiltrates I have discussed the case with Dr. Garcia - bronchoscopy uncomplicated - continue current care Subjective: slight improvement in SOB Objective: Vital Signs Temp Pulse Resp BP Pulse Ox 36.5 C 79 16 128/54 H 96 12/24/17 11:31 12/24/17 11:31 12/24/17 11:31 12/24/17 11:31 12/24/17 11:31 Microbiology 12/23/17 16:00 Gram Stain - Final Lung Bilateral - Bronchial Washings Laboratory Results 12/23/17 04:56 12/24/17 04:42 12/23/17 12/24/17 12/25/17 05:59 05:59 05:59 Intake Total 250 800 Output Total 200 Balance 250 600 - Physical Exam Constitutional: chronically ill appearing Eyes: anicteric sclera Ears, Nose, Mouth, Throat: moist mucous membranes Cardiovascular: regular rate and rhythym Respiratory: inspiratory crackles, No expiratory wheeze Gastrointestinal: normoactive bowel sounds Genitourinary: no bladder fullness Skin: warm Musculoskeletal: No asymmetric calves Neurologic: AAOx3 Psychiatric: interacting appropriately Lymph, Heme, Immunologic: no cervical LAD ICD10 Worksheet Patient Problems: Problems Problem Status Onset Breast cancer Acute Hypoxemia Acute Peripheral edema Acute Primary localized osteoarthritis of right knee Acute
--- NOTE | 2017-12-24 15:07 | SOAPPROG ---
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 Bronch yesterday, studies pending. Cont steroids (pred 45 BID). * Clinical IIA ILC right breast: ER+/HER2+ s/p neoadjuvant TCH+P completed 11/07. Good radiographic response to tx. Needs bilat mastectomy (multifocal right disease, left DCIS). Surgery postponed due to pneumonitis. Discussed with Dr. Best today. - Maintenance Herceptin due 12/25/17 (6 mg/kg). - could consider starting antiestrogen therapy (AI) while waiting for surgery * Left DCIS. Await bronch results. Cont steroids. Maintenance Herceptin tomorrow (ECHO normal), discussed with pharmacy. DVT prophylaxis. 12/24/17 15:04 Subjective: Maybe a little better. LE edema better. and kids present. O: VS reviewed Selected Entries 12/24/17 11:31 Heart Rate 79 Respiratory 16 Rate O2 Sat (%) 96 Temperature (C) 36.5 C Blood Pressure 128/54 H O2 (L/minute) 3 Gen: NAD, mildly cushingoid. Lungs: bilat crackles, unchanged. CV: tr bilateral LE edema, improved. Labs: no new data. Bronch studies pending. Objective: Vital Signs Temp Pulse Resp BP Pulse Ox 36.5 C 79 16 128/54 H 96 12/24/17 11:31 12/24/17 11:31 12/24/17 11:31 12/24/17 11:31 12/24/17 11:31 Microbiology 12/23/17 16:00 Gram Stain - Final Lung Bilateral - Bronchial Washings Laboratory Results 12/23/17 04:56 12/24/17 04:42 12/23/17 12/24/17 12/25/17 05:59 05:59 05:59 Intake Total 250 800 Output Total 200 Balance 250 600 ICD10 Worksheet Patient Problems: Problems Problem Status Onset Breast cancer Acute Hypoxemia Acute Peripheral edema Acute Primary localized osteoarthritis of right knee Acute
--- NOTE | 2017-12-24 15:15 | SOAPPROG ---
SOAP Progress Note Assessment/Plan: Assessment: Pulmonary infiltrates. Likely secondary to pneumonitis from chemotherapy/ Taxotere, possibly other agents as well. On steroids. Doubt bacterial infection or PCP. Procalcitonin is normal and should be elevated with both these infections. Chest x-ray pending. Status post bronchoscopy yesterday to exclude processes other than a drug-induced pneumonitis. History of breast cancer. On chemotherapy. For bilateral mastectomies in the near future. Plan: Await bronchoscopy results. I expect these to come back in over the next couple a days. Continue steroids. Increase activity/ambulation. Will add IS. Discussed with Dr. Yanez, the patient and her family. Subjective: Doing better today, up walking in the room. Decreased cough, less short of breath. Not bringing up much mucus. No chest pain. Objective: Vital Signs Temp Pulse Resp BP Pulse Ox 36.5 C 79 16 128/54 H 96 12/24/17 11:31 12/24/17 11:31 12/24/17 11:31 12/24/17 11:31 12/24/17 11:31 Microbiology 12/23/17 16:00 Gram Stain - Final Lung Bilateral - Bronchial Washings Laboratory Results 12/23/17 04:56 12/24/17 04:42 12/23/17 12/24/17 12/25/17 05:59 05:59 05:59 Intake Total 250 800 Output Total 200 Balance 250 600 Bronchoscopy results pending. Initial aerobic cultures show only mixed oral chantal Physical Exam - Physical Exam General Appearance: alert, no apparent distress EENT: other (Nasal cannula at 5 L: 94%.) Neck: normal inspection (No JVD) Respiratory: decreased breath sounds (And excursions), rales (Persisted at bases but appear to be better today), No rhonchi, No wheezing Cardiac/Chest: regular rate, rhythm, No gallop Abdomen: normal bowel sounds, non-tender, soft Skin: warm/dry, pallor Extremities: pedal edema (Trace +, improved) Neuro/Psych: no motor/sensory deficits, alert, No cognition abnormalities ICD10 Worksheet Patient Problems: Problems Problem Status Onset Primary localized osteoarthritis of right knee Acute Hypoxemia Acute Peripheral edema Acute Breast cancer Acute
[2017-12-24] MEDS: METRONIDAZOLE 0.75% TP SCH (19:44)
[2017-12-24] MEDS: ZOLPIDEM TARTRATE 5 MG TAB PO PRN (21:16)
[2017-12-25] MEDS: LEVOTHYROXINE 137 MCG TAB PO SCH (05:27)
[2017-12-25] MEDS: CHOLECALCIFEROL VIT D3 2,000 UNITS TAB/CAP PO SCH ×2 (09:46→20:26)
[2017-12-25] MEDS: CALCIUM CARB W/VIT D 500 MG TAB PO SCH ×2 (09:47→20:25)
[2017-12-25] MEDS: predniSONE 5 MG TAB PO SCH ×2 (09:47→17:53)
[2017-12-25] MEDS: POTASSIUM CL 10 MEQ TAB PO SCH (09:47)
[2017-12-25] MEDS: FUROSEMIDE 40 MG TAB PO SCH (09:47)
[2017-12-25] MEDS: predniSONE 20 MG TAB PO SCH ×2 (09:47→17:53)
[2017-12-25] MEDS: MULTIVITAMINS 1 EACH TAB PO SCH (09:47)
[2017-12-25] MEDS: PRESERVISION AREDS2 FORMULA EYE VIT 1 EACH PO SCH ×2 (09:47→20:25)
[2017-12-25] MEDS: ENOXAPARIN 40 MG/0.4 ML SYR SC SCH (09:48)
--- NOTE | 2017-12-25 12:49 | SOAPPROG ---
SOAP Progress Note Assessment/Plan: Assessment: 1. Her2+ breast cancer, radiographic CR after neoadjuvant chemo (TCH-P) 2. Taxotere induced pneumonitis Plan: - continue current prednisone - appreciate pulmonary recs - will continue maintenance herceptin - due today - mastectomy when lung function improved (not during this hospitalization) 25 min spent w/ pt and in coordination of care. 12/25/17 12:48 Subjective: feeling better. Objective: exam: breathing comfortably Lungs quiet BS bilaterally CV RRR no MGR Abd; +BS NT ND Ext: no edema Vital Signs Temp Pulse Resp BP Pulse Ox 36.7 C 84 18 112/60 96 12/25/17 12:36 12/25/17 12:36 12/25/17 12:36 12/25/17 12:36 12/25/17 12:36 Microbiology 12/23/17 16:00 Mycobacterial Smear (JUAN) - Final Lung Bilateral - Bronchial Washings 12/23/17 16:00 Gram Stain - Final Lung Bilateral - Bronchial Washings Laboratory Results 12/25/17 04:22 12/25/17 04:22 12/24/17 12/25/17 12/26/17 05:59 05:59 05:59 Intake Total 800 400 Output Total 200 Balance 600 400 ICD10 Worksheet Patient Problems: Problems Problem Status Onset Breast cancer Acute Hypoxemia Acute Peripheral edema Acute Primary localized osteoarthritis of right knee Acute
[2017-12-25] MEDS ORDERED: TRASTUZUMAB IV ONE (16:30)
[2017-12-25] MEDS ORDERED: NS IV ONE (16:30)
--- NOTE | 2017-12-25 17:04 | HOSPPROG ---
Hospitalist Progress Note Assessment/Plan: # acute hypoxic respiratory failure- acutely worsening in the outpatient setting - s/p treatment with both steroids and antibiotics Chest x-ray ( personally reviewed and interpreted) bilateral infiltrates and effusions - oxygen saturations 92% on 4L High suspicion for Taxotere induced pneumonitis - initiated on high dose steroids - slight improvement today subjectively when ambulating Lower suspicion for bacterial pneumonia secondary to procalcitonin is 0.04 - s/p bronchoscopy - washings and cx pending - continue Lasix - continue high-dose steroids # pulmonary infiltrates - as above concerning for possible pneumonitis versus infectious process - follow cultures - cont steroids as above # breast cancer- s/p adjuvant chemotherapy # hypothyroidism-continue Synthroid replacement # prophylaxis Lovenox # diet regular # disposition-greater than 2 midnights as the patient requires ongoing diagnostic workup for her progressive hypoxia and pulmonary infiltrates I have discussed the case with Dr. Garcia - bronchoscopy uncomplicated - continue current care Subjective: maybe a bit better today Objective: Vital Signs Temp Pulse Resp BP Pulse Ox 36.6 C 71 20 130/76 H 92 12/25/17 16:39 12/25/17 16:39 12/25/17 16:39 12/25/17 16:39 12/25/17 16:39 Microbiology 12/23/17 16:00 Gram Stain - Final Lung Bilateral - Bronchial Washings Bronchial Washings Culture - Final 12/23/17 16:00 Mycobacterial Smear (JUAN) - Final Lung Bilateral - Bronchial Washings Laboratory Results 12/25/17 04:22 12/25/17 04:22 12/24/17 12/25/17 12/26/17 05:59 05:59 05:59 Intake Total 800 400 Output Total 200 Balance 600 400 - Physical Exam Constitutional: chronically ill appearing Eyes: anicteric sclera Ears, Nose, Mouth, Throat: moist mucous membranes Cardiovascular: regular rate and rhythym Respiratory: inspiratory crackles Gastrointestinal: normoactive bowel sounds Genitourinary: no bladder fullness Skin: warm Musculoskeletal: No asymmetric calves Neurologic: AAOx3 Psychiatric: interacting appropriately Lymph, Heme, Immunologic: no cervical LAD ICD10 Worksheet Patient Problems: Problems Problem Status Onset Breast cancer Acute Hypoxemia Acute Peripheral edema Acute Primary localized osteoarthritis of right knee Acute
[2017-12-25] MEDS: ZOLPIDEM TARTRATE 5 MG TAB PO PRN (20:25)
[2017-12-25] MEDS: METRONIDAZOLE 0.75% TP SCH (20:27)
[2017-12-26] MEDS: LEVOTHYROXINE 137 MCG TAB PO SCH (05:28)
[2017-12-26 09:09] VITALS: BP 109/67
[2017-12-26] MEDS: CHOLECALCIFEROL VIT D3 2,000 UNITS TAB/CAP PO SCH (09:11)
[2017-12-26] MEDS: predniSONE 20 MG TAB PO SCH (09:12)
[2017-12-26] MEDS: PRESERVISION AREDS2 FORMULA EYE VIT 1 EACH PO SCH (09:12)
[2017-12-26] MEDS: MULTIVITAMINS 1 EACH TAB PO SCH (09:12)
[2017-12-26] MEDS: FUROSEMIDE 40 MG TAB PO SCH (09:12)
[2017-12-26] MEDS: POTASSIUM CL 10 MEQ TAB PO SCH (09:12)
[2017-12-26] MEDS: predniSONE 5 MG TAB PO SCH (09:12)
[2017-12-26] MEDS: CALCIUM CARB W/VIT D 500 MG TAB PO SCH (09:12)
[2017-12-26] MEDS: ENOXAPARIN 40 MG/0.4 ML SYR SC SCH (09:13)
--- NOTE | 2017-12-26 09:34 | SOAPPROG ---
SOAP Progress Note Assessment/Plan: Assessment: 1. Her2+ breast cancer, radiographic CR after neoadjuvant chemo (TCH-P) 2. Taxotere induced pneumonitis bronch shows organizing pneumonia, no evidence of infection Plan: - continue current prednisone - appreciate pulmonary recs - mastectomy when lung function improved (not during this hospitalization) 25 min spent w/ pt and in coordination of care. 12/25/17 12:48 12/26/17 09:34 Subjective: feeling better. Objective: exam: NAD, breathing comfortably. Lungs: dullness @ bases but overall clearer CV RRR no MGR Abd: +BS NT ND Ext: no edema Vital Signs Temp Pulse Resp BP Pulse Ox 36.6 C 79 20 109/67 89 L 12/26/17 09:04 12/26/17 09:04 12/26/17 09:04 12/26/17 09:04 12/26/17 09:04 Microbiology 12/23/17 16:00 Gram Stain - Final Lung Bilateral - Bronchial Washings Bronchial Washings Culture - Final Laboratory Results 12/25/17 04:22 12/26/17 05:26 12/25/17 12/26/17 12/27/17 05:59 05:59 05:59 Intake Total 400 1450 Balance 400 1450 ICD10 Worksheet Patient Problems: Problems Problem Status Onset Breast cancer Acute Hypoxemia Acute Peripheral edema Acute Primary localized osteoarthritis of right knee Acute
--- NOTE | 2017-12-26 10:19 | ASMTCMCOM ---
CM Note CM Note Notes: Spoke with patient about discharge needs - she doesn't feel that she needs a homecare RN. She has home O2 set up and feels that her port is managed well by [facility] when she goes for treatment. I encouraged her to reach out to Case Management if her needs change. Current CM Discharge plan: home with family Date Signed: 12/26/2017 10:18 AM Electronically Signed By:Sydney Madera RN
--- NOTE | 2017-12-26 13:16 | SOAPPROG ---
SOAP Progress Note Assessment/Plan: Assessment/plan: * Pulmonary infiltrates. Likely secondary to pneumonitis from chemotherapy/ Taxotere, possibly other agents as well. On steroids. Doubt bacterial infection or PCP. Procalcitonin is normal and should be elevated with both these infections. Chest x-ray pending. Bronchoscopy cultures negative for pathogens -continue high-dose steroids. Upon discharge would wean from 60 mg over approximately 1 month time. * History of breast cancer. On chemotherapy. For bilateral mastectomies in the near future. * Acute respiratory failure-oxygen requirements have diminished. Subjective: Sitting up in chair. Comfortable. Breathing easily. Oxygen requirements are down. Objective: Vital Signs Temp Pulse Resp BP Pulse Ox 36.6 C 79 20 109/67 89 L 12/26/17 09:04 12/26/17 09:04 12/26/17 09:04 12/26/17 09:04 12/26/17 09:04 Microbiology 12/23/17 16:00 Mycobacterial Smear (JUAN) - Final Lung Bilateral - Bronchial Washings 12/23/17 16:00 Gram Stain - Final Lung Bilateral - Bronchial Washings Bronchial Washings Culture - Final Laboratory Results 12/25/17 04:22 12/26/17 05:26 12/25/17 12/26/17 12/27/17 05:59 05:59 05:59 Intake Total 400 1450 Balance 400 1450 - Time Spent With Patient Time Spent With Patient: 25 min of time spent with patient, over 1/2 involved with coordination of care or counseling Physical Exam - Physical Exam General Appearance: alert, obese EENT: PERRL/EOMI Neck: non-tender, full range of motion, supple, normal inspection Respiratory: crackles (Bibasilar), No respiratory distress, No wheezing Cardiac/Chest: normal peripheral pulses, regular rate, rhythm Abdomen: normal bowel sounds, non-tender, soft Pelvic Exam: deferred Rectal: deferred Skin: normal color, warm/dry Neuro/Psych: no motor/sensory deficits, alert, normal mood/affect, oriented x 3 ICD10 Worksheet Patient Problems: Problems Problem Status Onset Breast cancer Acute Hypoxemia Acute Peripheral edema Acute Primary localized osteoarthritis of right knee Acute
--- NOTE | 2017-12-26 14:22 | PDHOMEO2F ---
Home Oxygen Face to Face Home Orders: I certify that a physician or a nurse practitioner or physician's assistant curator has had a [id number] encounter with this patient on the date of this order due to the diagnosis listed, which relates to the primary reason the patient requires home oxygen. Alternative treatments have been tried, or considered, and deemed ineffective. It is anticipated that supplemental oxygen will result in improvement with treatment. Home oxygen qualifying diagnosis: pneumonitis SpO2 on room air (%): 84 Frequency of home oxygen needed: continuous Home oxygen liters per minute: 2 Home oxygen delivery device: nasal cannula Concentrator: No E-tanks for mobility and back up: Yes If ordering portable O2, is the patient mobile in the home?: Yes I certify that, based on these findings, the home oxygen is medically necessary for this patient for the following length of time. Length of time home oxygen needed: 3 months
--- NOTE | 2017-12-26 17:17 | GDS ---
[f rep st] DISCHARGE SUMMARY DISCHARGE DIAGNOSES: Include: 1. Acute hypoxic respiratory failure assumed secondary to acute pneumonitis from chemotherapy. 2. Pulmonary infiltrates, presumed secondary to pneumonitis. 3. Breast cancer, status post adjuvant chemotherapy. 4. Hypothyroidism. HISTORY OF PRESENT ILLNESS: This is a 62-year-old female who presented on 12/22/2017, with complaint s of shortness of breath. For details of patient's initial presentation, please see the history and physical dated 12/22/2017. CONSULTATIVE SERVICES: Include: 1. Pulmonary/Critical Care. 2. Oncology. PROCEDURES: On 12/23/2017, patient underwent bronchoscopy with deep cultures. HOSPITAL COURSE BY ISSUE: 1. Acute hypoxic respiratory failure. The patient was found to have bilateral pulmonary infiltrates , concerning for possible atypical infection versus pneumonitis. The patient's cultures remain negat damian including those obtained during bronchoscopy. She was initiated on high-dose steroids in the out patient setting, and was continued on these throughout her hospitalization. The day prior to disposi tion, she began improving in her oxygen requirements and sense of subjective dyspnea. The patient wilder s been weaned down to 2 L supplemental oxygen on the day of discharge. She has been evaluated by the hydrogen power plant manager. All of the cultures obtained during bronchoscopy remain no growth to date at the braulio e of her disposition. She will follow in the pulmonology clinic in 3 weeks' time. During that time, she will be decreasing her outpatient prednisone dose orally by 10 mg every 4 days starting with an 80 mg daily dose on the day after disposition. 2. Bilateral pulmonary infiltrates. Patient's Pneumocystis testing is pending. The rest of her cul tures remain no growth at the time of her disposition. She will be followed in the outpatient [facility] by Pulmonary Medicine as well as Hematology, Oncology. 3. Breast cancer. Patient will be followed closely in the outpatient setting by her oncology team. She did receive her Herceptin dose during this hospital stay without any complications. MEDICATIONS AT THE TIME OF TRANSFER: Please reference the med rec printed on 12/26/2017. FOLLOWUP APPOINTMENTS: Include: 1. In [address] Doyle from Pulmonary Medicine. 2. In [address] Graham with [facility]. PENDING STUDIES: Include all deep cultures obtained on bronchoscopy. I spent greater than 30 minutes in the planning and coordination of this discharge. /[id number]/MODL
== END 2017-12-26 15:55 | disposition home or self-care (01) | DRG 166 ==
LOC: F1N 11:14 → PREINTOOBSV 11:17 → OBSVTOIN 13:25
PROVIDERS: ADMIT Internal Medicine; ATTEND Internal Medicine
PROC: 0BBF8ZX Excision of Right Lower Lung Lobe, Via Natural or Artificial Opening Endoscopic, Diagnostic (ICD-10-PCS; principal; 2017-12-23 15:31)
PROC: 0B9M8ZX Drainage of Bilateral Lungs, Via Natural or Artificial Opening Endoscopic, Diagnostic (ICD-10-PCS; principal; 2017-12-23 15:31)
PROC: 0B918ZX Drainage of Trachea, Via Natural or Artificial Opening Endoscopic, Diagnostic (ICD-10-PCS; principal; 2017-12-23 15:31)
PROC: 3E0330M Introduction of Antineoplastic, Monoclonal Antibody, into Peripheral Vein, Percutaneous Approach (ICD-10-PCS; 2017-12-25)
DX: J18.8 Other pneumonia, unspecified organism (principal); J96.01 Acute respiratory failure with hypoxia; T45.1X5A Adverse effect of antineoplastic and immunosuppressive drugs, initial encounter; C50.911 Malignant neoplasm of unspecified site of right female breast; C50.912 Malignant neoplasm of unspecified site of left female breast; E03.9 Hypothyroidism, unspecified; G62.0 Drug-induced polyneuropathy; D64.81 Anemia due to antineoplastic chemotherapy; Z96.659 Presence of unspecified artificial knee joint; Z80.3 Family history of malignant neoplasm of breast; Z80.1 Family history of malignant neoplasm of trachea, bronchus and lung; Z80.42 Family history of malignant neoplasm of prostate
CPT/HCPCS: J0171; J1642; J1650; J2250; J3010; J7512; J7613; J9355

== ENCOUNTER → 2018-01-29 | Outpatient (CLI) | payer OTHER | LOC: FIMAGING 14:18 | PROVIDERS: ATTEND Internal Medicine Pulmonary Disease | DX: J98.4 Other disorders of lung (principal) ==

== ENCOUNTER → 2018-02-09 | Outpatient (CLI) | payer OTHER | LOC: CIMAGING 10:33 | PROVIDERS: ATTEND Nurse Practitioner | DX: J84.89 Other specified interstitial pulmonary diseases (principal); C50.111 Malignant neoplasm of central portion of right female breast | CPT/HCPCS: 71250-PO ==

== ENCOUNTER → 2018-02-20 | Outpatient (CLI) | payer OTHER ==
[~2018-02-20] MED LIST changes: +IOPAMIDOL (ISOVUE-300) 100 ML BTL ONE
== END ==
LOC: FIMAGING 11:41
PROVIDERS: ATTEND Nurse Practitioner
DX: Z08 Encounter for follow-up examination after completed treatment for malignant neoplasm (principal); R60.9 Edema, unspecified; J90 Pleural effusion, not elsewhere classified; J84.9 Interstitial pulmonary disease, unspecified; R93.8 Abnormal findings on diagnostic imaging of other specified body structures; Z85.3 Personal history of malignant neoplasm of breast
CPT/HCPCS: 0159T; 71250; 74177; 77059; A9585; C8908; Q9967

== ENCOUNTER 2018-03-16 07:03 | Inpatient (IN) | payer OTHER ==
[~2018-03-16 07:03] MED LIST changes: -GADOBUTROL 10 ML VIAL IVP ONE; -IOPAMIDOL (ISOVUE-300) 100 ML BTL ONE; +VANCOMYCIN 1.25 GM in D5W 250 ML IV ONE; +VANCOMYCIN 1.25 GM in NS 250 ML IV ONE
[2018-03-16] MEDS ORDERED: LR 1,000 ML IV ONE (07:19)
[2018-03-16] MEDS ORDERED: LIDO/EPI 2% **for epidural** 20 ML SDV ONE (09:22)
[2018-03-16] MEDS ORDERED: THROMBIN (BOVINE) 20,000 UNIT SPRAY TP ONE (09:22)
[2018-03-16] MEDS ORDERED: LIDOCAINE/EPINEPHRINE 0.5% 50 ML MDV ONE (09:22)
[2018-03-16] MEDS ORDERED: BUPIVACAINE 0.25% 30 ML SDV ONE ×3 (09:22→12:28)
[2018-03-16] MEDS ORDERED: LIDOCAINE 1% 300 MG/30 ML SDV ONE (09:24)
[2018-03-16] MEDS ORDERED: MIDAZOLAM 2 MG/2 ML VIAL IVP ONE (09:57)
--- NOTE | 2018-03-16 10:00 | PDANEPAE ---
ANE History of Present Illness 62 year old with 62 yo with breast ca ANE Past Medical History - Cardiovascular History Hx Hypertension: No Hx Arrhythmias: No Hx Chest Pain: No Hx Coronary Artery / Peripheral Vascular Disease: No Hx CHF / Valvular Disease: No Hx Palpitations: No - Pulmonary History Hx COPD: No Hx Asthma/Reactive Airway Disease: No Hx Recent Upper Respiratory Infection: No Hx Oxygen in Use at Home: Yes O2 in Use at Home (L/minute): 2L WHEN SITTING OTHERWISE 5L Hx Sleep Apnea: No Sleep Apnea Screening Result - Last Documented: Negative Pulmonary History Comment: POST CHEMO INSTERSTITIAL LUNG DX/HYPOXEMIA - Neurologic History Hx Cerebrovascular Accident: No Hx Seizures: No Hx Dementia: No - Endocrine History Hx Diabetes: No Endocrine History Comment: Hypothyroid - Renal History Hx Renal Disorders: No - Liver History Hx Hepatic Disorders: No - Neurological & Psychiatric Hx Hx Neurological and Psychiatric Disorders: No - Cancer History Hx Cancer: Yes Cancer History Comment: LAST CHEMO 10/2017. breast - Congenital Disorder History Hx Congenital Disorders: No - GI History Hx Gastrointestinal Disorders: No - Other Health History Other Health History: ANEMIA IRON INFUSIONS 02/09/18 & 02/16/18. [place]. Bottom missing tooth. Bruise easily. Arthritis both knees. - Chronic Pain History Chronic Pain: Yes (LUNGS) - Surgical History Prior Surgeries: PORT PLACEMENT 07/07/17. RT TOTAL KNEE 06/2015. TONSILLECTOMY ANE Review of Systems Review of Systems: - Exercise capacity METS (RN): 3 METS - Systems Respiratory: Reports: shortness of breath ANE Patient History - Allergies Allergies/Adverse Reactions: Penicillins Allergy (Intermediate, Verified 11/28/17 15:52) Hives - Home Medications Home Medications: Herbals/Supplements -Info Only 1 each PO DAILY 06/11/15 [Last Taken 03/12/18] C/E/Zn/Cu/OM3/DHA/EPA/LUT/ZEAX [Preservision Areds 2 Softgel] 1 each PO BID [Last Taken 03/12/18] Calcium Carb W/Vit D [Calcium Carb W/Vit D 500/200 (*)] 500 mg PO BID 11/28/17 [ Last Taken 03/12/18] Cholecalciferol Vit D3 [Vitamin D3 2000 units tab (OTC)] 5,000 units PO BID [Last Taken 03/12/18] Levothyroxine [Synthroid 137 mcg (*)] 137 mcg PO DAILY06 11/28/17 [Last Taken ] Multivitamins [Multivitamin (*)] 1 each PO DAILY 11/28/17 [Last Taken 03/12/18] Potassium Cl [Klor-Con 10 meq (RX)] 10 meq PO DAILY 12/22/17 [Last Taken ] Sulfamethox/Tmp 800/160 mg [Bactrim Ds] 1 tab PO MWF 03/06/18 [Last Taken ] predniSONE [Prednisone] 20 mg PO DAILY 03/06/18 [Last Taken 03/15/18] - NPO status NPO Since - Liquids (Date): 03/16/18 NPO Since - Liquids (Time): 06:30 NPO Since - Solids (Date): 03/15/18 NPO Since - Solids (Time): 19:30 - Smoking Hx Smoking Status: Never smoked - Alcohol Use Alcohol Use: Rarely - Family Anes Hx Family Hx Anesthesia Complications: none ANE Labs/Vital Signs - Vital Signs Blood Pressure: 111/68 Heart Rate: 75 Respiratory Rate: 16 O2 Sat (%): 98 Height: 172.72 cm Weight: 87.09 kg ANE Physical Exam - Pulmonary Pulmonary: no respiratory distress, clear to auscultation - Cardiovascular Cardiovascular: regular rate and rhythym - ASA Status ASA Status: III
[2018-03-16] MEDS ORDERED: fentaNYL 100 MCG/2 ML INJ ONE ×4 (10:29→14:49)
[2018-03-16] MEDS ORDERED: PROPOFOL/EMULSION 500 MG/50 ML BOTTLE IV ONE (10:48)
[2018-03-16] MEDS ORDERED: KETAMINE 500 MG/10 ML VIAL ONE (11:22)
[2018-03-16] MEDS: VANCOMYCIN PHARMACY TO DOSE MISC ONE ×2 (12:36→16:12)
[2018-03-16] MEDS ORDERED: NALOXONE HCL 0.4 MG/ML INJ IVP PRN (13:48)
[2018-03-16] MEDS ORDERED: ONDANSETRON 4 MG/2 ML VIAL IVP PRN ×2 (13:48→14:14)
[2018-03-16] MEDS ORDERED: LABETALOL HCL 5 MG/ML 20 ML MDV IVP PRN (13:48)
[2018-03-16] MEDS ORDERED: PROMETHAZINE HCL 25 MG/ML INJ IVP PRN (13:48)
--- NOTE | 2018-03-16 13:50 | POSTANESTH ---
Post Anesthetic Evaluation Cardiovascular Status: Normal, Stable Respiratory Status: Normal, Stable Level of Consciousness/Mental Status: Can Participate in Eval Pain Control: Adequate, Prn Tx Ordered Nausea/Vomiting Control: Adequate, Prn Tx Ordered Complications Possibly Related to Anesthesia: None Noted
[2018-03-16] MEDS ORDERED: diphenhydrAMINE 25 MG CAP PO PRN (14:15)
[2018-03-16] MEDS ORDERED: NARCOTIC DRIP BAG-TOTAL ALL TYPES EP PRN (14:30)
[2018-03-16] MEDS: fentaNYL 100 MCG/2 ML INJ IVP PRN ×2 (14:49→14:56)
[2018-03-17] MEDS: NS EP SCH ×2 (01:17→11:35)
[2018-03-17] MEDS: BUPIVACAINE 0.5% EP SCH ×2 (01:17→11:35)
[2018-03-17] MEDS: FENTANYL EP SCH ×2 (01:17→11:35)
[2018-03-17] MEDS: LEVOTHYROXINE 137 MCG TAB PO SCH (07:30)
--- NOTE | 2018-03-17 08:30 | POSTOPPROG ---
Post Op Note Date of Operation: 03/17/18 Surgeon: Melba Best Anesthesiologist: warm Anesthesia: Epidural, GET(General Endotracheal) Pre-op Diagnosis: R invasive breast cancer, L breast DCIS Post-op Diagnosis: Same Indication: 62 yo sp neoadjuvant chemo who has pulmonary toxicity presents for mastecto Procedure: B mast, L sln, R axillary dissection (node did not localize) Findings: Very hot node on the left and minimal uptake on the right Inf/Abcess present in the surg proc area at time of surgery?: No Drains: Shaan Villalba Specimen(s): B mast L SLN R ax contents
[2018-03-17] MEDS: predniSONE 20 MG TAB PO SCH (08:32)
[2018-03-17] MEDS: FUROSEMIDE 20 MG TAB PO SCH (08:32)
[2018-03-17] MEDS: POTASSIUM CL 10 MEQ TAB PO SCH (08:32)
--- NOTE | 2018-03-17 10:23 | ASMTCMCOM ---
CM Note CM Note Notes: Pt had bilateral mastectomy yesterday, OT/PT evals pending. CM to follow for d/c planning. Date Signed: 03/17/2018 10:23 AM Electronically Signed By:CLAUDIA Canales
[2018-03-17] MEDS ORDERED: NALOXONE HCL 0.4 MG/ML INJ IVP PRN (13:33)
--- NOTE | 2018-03-17 14:49 | SOAPPROG ---
SOAP Progress Note Assessment/Plan: Assessment: SP BILAT MASTECTOMIES, AFEBRILE, COMFORTABLE, WOUNDS OK, MINIMAL DRAINAGE Plan:HOME IN AM ? 03/17/18 14:47 Objective: Vital Signs Temp Pulse Resp BP Pulse Ox 36.7 C 71 15 148/61 H 100 03/17/18 12:00 03/17/18 12:00 03/17/18 12:00 03/17/18 12:00 03/17/18 12:00 03/16/18 03/17/18 03/18/18 05:59 05:59 05:59 Intake Total 1656.7 Output Total 645 Balance 1011.7 ICD10 Worksheet Patient Problems: Problems Problem Status Onset Breast cancer Acute Hypoxemia Acute Peripheral edema Acute Primary localized osteoarthritis of right knee Acute
--- NOTE | 2018-03-17 15:27 | GOP ---
[f rep st] OPERATIVE REPORT DATE OF OPERATION: 03/16/2018 SURGEON: Melba Best MD FAST FOOD CREW LEAD: Brody Renteria MD ANESTHESIA: General. ANESTHESIOLOGIST: Francis Valle MD PREOPERATIVE DIAGNOSIS: Right breast invasive cancer, left breast ductal carcinoma in situ. POSTOPERATIVE DIAGNOSIS: Right breast invasive cancer, left breast ductal carcinoma in situ. PROCEDURE PERFORMED: 1. Bilateral mastectomy. 2. Left sentinel lymph node, right axillary dissection. FINDINGS: could not find sentinel lymph node on right SPECIMENS: Right breast short superior long lateral, left breast short superior long lateral, left sentinel node, right axillary contents. ESTIMATED BLOOD LOSS: 250 cc. 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 She underwent neoadjuvant chemotherapy. She developed pulmonary toxicity. Her lungs are relatively stable, although she still has severe pulmonary issues as well as pulmonary hypertension. The decision was made that there was not going to be any more medical management or improvement that could happen prior to the OR. DESCRIPTION OF PROCEDURE: Patient was brought into the operating room, placed supine on the table. An epidural was placed. She was placed supine, and her bilateral breasts and axilla were prepped and draped in the usual sterile fashion. She was under sedation. As I began to make my incisions and developed my flaps, anesthesia felt that she was uncomfortable and then placed an LMA. I started on the right breast. I created superior and inferior skin flaps. My dissection occurred to the sternum, clavicle, inframammary fold, and mid axillary line. I removed the breast from the pectoralis fascia. I marked it short superior, and long lateral. I then used the gamma probe to try to identify the sentinel lymph node. Despite spending approximately 45 minutes, I was unable to localize the node. Concurrently, Dr. Renteria was performing the left mastectomy. The dissection preserved the port and occurred to the clavicle , sternum, inframammary fold, and mid axillary line, and the breast was removed from the pectoralis fascia. The sentinel node on the left side was extremely easy and superficial. This was removed and sent to Pathology. It returned negative. I also had Dr. Renteria come over to the right side and see if he could identify the sentinel lymph node and again it would not localize. The background always remained between around 50. If I pointed the probe toward the chest, it was higher, but it was not focused and predictably had high numbers over the chest due to the injection site. Due to wanting to minimize the need for radiation, I performed an axillary dissection. The thoracodorsal nerve bundle was intimately associated with the axillary contents. I carefully dissected this free. The long thoracic nerve was also identified and protected. Hemostasis was achieved in each wound. 15 round channel drains were placed. I also placed an additional drain into the right axilla. Each drain was sutured in place with 3-0 nylon. The incisions were closed with 3-0 Vicryl followed by 4-0 Monocryl. Mastisol, Steri-Strips, and silver dressings were applied. She was awakened in the operating room, extubated and transferred to PACU in stable condition. /[id number]/MODL MTDD
--- NOTE | 2018-03-17 15:45 | POSTANESTH ---
Post Anesthetic Evaluation Cardiovascular Status: Normal, Stable Respiratory Status: Normal, Stable Level of Consciousness/Mental Status: Can Participate in Eval, Alert and Oriented Pain Control: Adequate, Prn Tx Ordered Nausea/Vomiting Control: Adequate, Prn Tx Ordered Complications Possibly Related to Anesthesia: None Noted (Pt POD #1 for bilateral masectomies. PCEA is place for post op pain control. Pt reports excellent chest wall pain control. Some axillary pain. Will order norco for pain.)
[2018-03-17] MEDS: HYDROCODONE/APAP 5/325 TAB PO PRN (16:09)
--- NOTE | 2018-03-17 17:23 | PDCONSULT ---
[employer] Clerk Note: Seen informally. Patient is well known to me from the office. 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 She has been on prednisone and has tapered this down slowly to her current dose of 20 mg. Also seen recently for a 2nd opinion at [facility]. Status post bilateral mastectomy yesterday. She did well with this. On 2-3 L afterwards without any significant pulmonary/respiratory problems. She does remain on oxygen 2 L at rest and 4-5 with exertion. She has a few rales primarily at the left base. These have been present previously. She is otherwise very stable and doing well. Plan: Decreased prednisone to 15. I will order a CBC and basic metabolic panel for tomorrow. I will consider getting a PA and lateral chest x-ray prior to her discharge. I am scheduled to see her back in the office in a couple of weeks. I may postpone this until she has healed from her mastectomy. Discussed with the patient and her family.
[2018-03-18] MEDS: FENTANYL EP SCH ×2 (00:08→16:13)
[2018-03-18] MEDS: BUPIVACAINE 0.5% EP SCH ×2 (00:08→16:13)
[2018-03-18] MEDS: NS EP SCH ×2 (00:08→16:13)
[2018-03-18] MEDS: LEVOTHYROXINE 137 MCG TAB PO SCH (05:48)
[2018-03-18] MEDS: DC NARCS MISC SCH (10:21)
[2018-03-18] MEDS: FUROSEMIDE 20 MG TAB PO SCH (10:21)
[2018-03-18] MEDS: predniSONE 20 MG TAB PO SCH (10:21)
[2018-03-18] MEDS: POTASSIUM CL 10 MEQ TAB PO SCH (10:21)
[2018-03-18] MEDS: REGARDING ANTICOAG MISC SCH (10:22)
--- NOTE | 2018-03-18 11:51 | SOAPPROG ---
SOAP Progress Note Assessment/Plan: Assessment: SP BILAT MASTECTOMIES, AFEBRILE, COMFORTABLE, WOUNDS OK, MINIMAL DRAINAGE Plan:HOME IN AM ? 03/17/18 14:47 03/18/18 11:50 VITAL SIGNS STABLE/AFEBRILE/LUNGS DOING WELL ON 2 L COMPLAINING OF SOME RIGHT LATERAL INCISIONAL PAIN BUT OVERALL EPIDURAL IS WORKING WELL FOR PAIN CONTROL MINIMAL SUBHASH DRAINAGE/PATH PENDING/HEMATOCRIT 27 PLAN WEAN OFF EPIDURAL TOMORROW Objective: Vital Signs Temp Pulse Resp BP Pulse Ox 36.7 C 64 14 144/54 H 100 03/18/18 07:34 03/18/18 07:34 03/18/18 07:34 03/18/18 07:34 03/18/18 07:34 Laboratory Results 03/18/18 05:45 03/18/18 05:45 03/17/18 03/18/18 03/19/18 05:59 05:59 05:59 Intake Total 1656.7 2200 Output Total 645 121 18 Balance 1011.7 9 -18 ICD10 Worksheet Patient Problems: Problems Problem Status Onset Breast cancer Acute Hypoxemia Acute Peripheral edema Acute Primary localized osteoarthritis of right knee Acute
[2018-03-18] MEDS: ACETAMINOPHEN 325 MG TAB PO PRN ×2 (12:45→20:31)
--- NOTE | 2018-03-18 13:42 | POSTANESTH ---
Post Anesthetic Evaluation Cardiovascular Status: Normal, Stable Respiratory Status: Normal, Stable Level of Consciousness/Mental Status: Can Participate in Eval Pain Control: Adequate, Prn Tx Ordered Nausea/Vomiting Control: Adequate, Prn Tx Ordered Complications Possibly Related to Anesthesia: None Noted (Pt POD #2 for B masectomies. Epidural in place for post op pain control. Epidural dressing intact, site nonerythematous, nontender. Pt reports good pain control. Supplimental tylenol being given. Will continue epidural until AM.)
--- NOTE | 2018-03-18 15:03 | PDMN ---
Medical Necessity Medical necessity[place] [facility] [place]; Pt does not meet discharge readiness, pain not managed, pt remains on epidural for pain, - cormorbidities of severe lung dysfunction,- interstitial pneumonitis, req O2, necessitates prolonged surveillance,> 2 midnights ongoing med nec care. OP: . bilat mastectomy, L SLN , R axillary dissection,
[2018-03-19] MEDS: ACETAMINOPHEN 500 MG TAB PO PRN ×2 (05:57→12:36)
[2018-03-19] MEDS: LEVOTHYROXINE 137 MCG TAB PO SCH (05:57)
[2018-03-19] MEDS: SULFAMETHOX/TMP 800/160 MG 1 TAB PO SCH (08:17)
[2018-03-19] MEDS: predniSONE 10 MG TAB PO SCH (08:17)
[2018-03-19] MEDS: FUROSEMIDE 20 MG TAB PO SCH (08:17)
[2018-03-19] MEDS: POTASSIUM CL 10 MEQ TAB PO SCH (08:18)
[2018-03-19] MEDS: DC NARCS MISC SCH (08:36)
[2018-03-19] MEDS: REGARDING ANTICOAG MISC SCH (08:36)
[2018-03-19] MEDS: BUPIVACAINE 0.5% EP SCH (12:38)
[2018-03-19] MEDS: FENTANYL EP SCH (12:38)
[2018-03-19] MEDS: NS EP SCH (12:38)
--- NOTE | 2018-03-19 14:09 | SOAPPROG ---
SOAP Progress Note Assessment/Plan: Assessment/Plan: 62 Y F s/p B mastectomies. Seen with Dr. Washburn and d/w'ed Dr. Best and RN. Pain controlled. SUBHASH drainage decreased. Afebrile. Regular diet. Decrease epidural--Dr. Washburn discussed with RN. Likely dc epidural soon--defer to anesthesia. Dispo: possibly in next few days pending course and pain control. S: comfortable. no SOB or CP. O: alert, nad wounds well dressed drains serosanguinous no wob 03/19/18 14:07 Objective: Vital Signs Temp Pulse Resp BP Pulse Ox 36.6 C 67 18 150/68 H 3 L 03/19/18 08:00 03/19/18 08:00 03/19/18 08:00 03/19/18 08:00 03/19/18 08:00 Laboratory Results 03/18/18 05:45 03/18/18 05:45 03/18/18 03/19/18 03/20/18 05:59 05:59 05:59 Intake Total 2200 829.1 300 Output Total 121 163 930 Balance 2079 666.1 -630 ICD10 Worksheet Patient Problems: Problems Problem Status Onset Breast cancer Acute Hypoxemia Acute Peripheral edema Acute Primary localized osteoarthritis of right knee Acute
[2018-03-19] MEDS: HYDROCODONE/APAP 5/325 TAB PO PRN ×2 (15:03→19:39)
[2018-03-20] MEDS: LEVOTHYROXINE 137 MCG TAB PO SCH (04:42)
[2018-03-20] MEDS: HYDROCODONE/APAP 5/325 TAB PO PRN ×4 (04:42→23:08)
[2018-03-20] MEDS: POTASSIUM CL 10 MEQ TAB PO SCH (08:12)
[2018-03-20] MEDS: predniSONE 10 MG TAB PO SCH (08:13)
[2018-03-20] MEDS: FUROSEMIDE 20 MG TAB PO SCH (08:13)
[2018-03-20] MEDS: DC NARCS MISC SCH (08:18)
[2018-03-20] MEDS: REGARDING ANTICOAG MISC SCH (08:19)
--- NOTE | 2018-03-20 19:07 | SOAPPROG ---
SOAP Progress Note Assessment/Plan: Assessment: s/p bilat mastectomy, L SLN, r axillary dissection for R breast invasive cancer and L breast DCIS Severe lung disease Hypertension Doing remarkably well Will remove drains when less than 20 cc/24 hours for 2 days in a row Likely home tomorrow S: More pain since epidural out, pain controlled with Percocet although debating between 1 or 2 tabs O: Sitting in chair, appears comfortable, and friend at bedside JPs with serosanguinous fluid Dressings clean dry and intact Plan: 03/20/18 19:05 03/21/18 01:52 Objective: Vital Signs Temp Pulse Resp BP Pulse Ox 36.7 C 72 16 188/89 H 95 03/20/18 16:32 03/20/18 16:32 03/20/18 16:32 03/20/18 16:32 03/20/18 16:32 Laboratory Results 03/18/18 05:45 03/18/18 05:45 03/19/18 03/20/18 03/21/18 05:59 05:59 05:59 Intake Total 829.1 1650 300 Output Total 163 2945 2300 Balance 666.1 -1295 -2000 ICD10 Worksheet Patient Problems: Problems Problem Status Onset Breast cancer Acute Hypoxemia Acute Peripheral edema Acute Primary localized osteoarthritis of right knee Acute
[2018-03-21] MEDS: LEVOTHYROXINE 137 MCG TAB PO SCH (05:14)
[2018-03-21] MEDS: POTASSIUM CL 10 MEQ TAB PO SCH (08:19)
[2018-03-21] MEDS: predniSONE 10 MG TAB PO SCH (08:19)
[2018-03-21] MEDS: FUROSEMIDE 20 MG TAB PO SCH (08:19)
[2018-03-21] MEDS: HYDROCODONE/APAP 5/325 TAB PO PRN ×2 (08:21→12:34)
[2018-03-21] MEDS: SULFAMETHOX/TMP 800/160 MG 1 TAB PO SCH (08:21)
[2018-03-21] MEDS: REGARDING ANTICOAG MISC SCH (08:24)
[2018-03-21] MEDS: DC NARCS MISC SCH (08:25)
--- NOTE | 2018-03-21 08:44 | SOAPPROG ---
SOAP Progress Note Assessment/Plan: Assessment: s/p bilat mastectomy, L SLN, r axillary dissection for R breast invasive cancer and L breast DCIS Severe lung disease Hypertension Doing remarkably well Will remove drains when less than 20 cc/24 hours for 2 days in a row /U Monday S:Pain controlled O: Sitting in chair, appears comfortable, JPs with serosanguinous fluid Dressings clean dry and intact Plan: 03/20/18 19:05 03/21/18 01:52 03/21/18 08:43 Objective: Vital Signs Temp Pulse Resp BP Pulse Ox 36.6 C 69 1 L 151/68 H 96 03/21/18 04:00 03/21/18 04:00 03/21/18 04:00 03/21/18 04:00 03/21/18 04:00 Laboratory Results 03/18/18 05:45 03/18/18 05:45 03/20/18 03/21/18 03/22/18 05:59 05:59 05:59 Intake Total 1650 1000 Output Total 2389 8422 Balance -5100 -4756 ICD10 Worksheet Patient Problems: Problems Problem Status Onset Breast cancer Acute Hypoxemia Acute Peripheral edema Acute Primary localized osteoarthritis of right knee Acute
[2018-03-21 09:51] VITALS: BP 153/72
--- NOTE | 2018-03-21 17:34 | ASMTLACE ---
LACE Length of stay for Answers: 2 days current admission Acuity / Level of Answers: Yes Care: Did the patient have an inpatient admission? Comorbidities - select Answers: Any tumor (including all that apply lymphoma or leukemia) Opioid dependence / Chronic pain # of Emergency department Answers: 0 visits in the last 6 months Score: 11 Date Signed: 03/21/2018 05:33 PM Electronically Signed By:Katty Nunez RN
--- NOTE | 2018-03-21 17:37 | ASDISCHSUM ---
Discharge Information Plan Status:Home with No Needs Medically Cleared to Leave:03/21/2018 Discharge Date:03/21/2018 12:45 PM CM D/C Disposition:Home, Routine, Self-Care ADT D/C Disposition:Home, Routine, Self-Care Projected Discharge Date:03/21/2018 12:45 PM Transportation at D/C:Family Discharge Delay Reason: Follow-Up Date:03/21/2018 12:45 PM Discharge Slot:2 - 12:01 pm - 18:00 pm Final Diagnosis:Bilateral breast cancer, s/p bilateral mastectomy Placement Information Patient Contact Information Contact Name:JENNIFER Relationship: Address:[address] City:[place] Alternate Phone: [facility]/Zip Code:[place] [address] Email: Financial Information Financial Class:HMO and PPO Plans Primary Plan Desc:[employer]/POS PPO Primary Plan Number:[id number] Secondary Plan Desc: Secondary Plan Number: Assessment Information [facility] CM Progress Note CM Note CM Note Notes: Pt had bilateral mastectomy yesterday, OT/PT evals pending. CM to follow for d/c planning. Date Signed: 03/17/2018 10:23 AM Electronically Signed By:CLAUDIA Canales LACE LACE Length of stay for Answers: 2 days current admission Acuity / Level of Answers: Yes Care: Did the patient have an inpatient admission? Comorbidities - select Answers: Any tumor (including all that apply lymphoma or leukemia) Opioid dependence / Chronic pain # of Emergency department Answers: 0 visits in the last 6 months Score: 11 Date Signed: 03/21/2018 05:33 PM Electronically Signed By:Katty Nunez RN Case Management Discharge Plan Note Case Management Discharge Discharge Order Complete? Answers: Yes Patient to Obtain Answers: via Family Medications Transportation Arranged Answers: Family/Friends Transport will Pick (Date 03/21/2018 12:00 AM & Time) EMTALA Complete Answers: No Notes: N/A Case Management Transport Answers: No Notes: N/A Form Complete Faxed Final Orders Answers: No Notes: N/A Agency/Facility Transfer Answers: No Notes: N/A Report Printed & Faxed to Receiving Agency Family Notified Answers: Yes Notes: Pt notified Discharge Comments Notes: Reviewed chart regarding discharge plan of care, pt's progress. Pt to discharge home independently with family support and no identified needs. PT/OT cleared, pt met all goals. No IM signed, not applicable. Pt to follow up as directed. CM available for any further issues or concerns. Discharge Plan: Home independently with family support Date Signed: 03/21/2018 05:36 PM Electronically Signed By:Katty Nunez RN Intervention Information
--- NOTE | 2018-03-30 08:42 | GDS ---
[f rep st] DISCHARGE SUMMARY DISCHARGE DIAGNOSES: 1. 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 2. 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 3. Hypertension. 4. History of aortic aneurysm. 5. History of dyslipidemia. PROCEDURES: On 03/16/2018, bilateral mastectomy and left sentinel lymph node and right axillary diss ection. Complications, none. Operating physician, Dr. Melba Hall. CONSULTATIONS: None. BRIEF HISTORY: Please see dictated H and P dated 03/15/2018, for complete details. In brief, the sugar barahona is a 62-year-old female with bilateral breast cancer. She had a left breast cancer, a ductal c arcinoma in situ. Her right breast shows an invasive lobular carcinoma with ER positive, IN weakly p ositive, and HER2, 3+ by immunochemistry. She had neoadjuvant chemotherapy and proceeded to bilatera l mastectomy on 03/16/2018. She did not have immediate reconstruction due to her comorbidities. HOSPITAL COURSE BY PROBLEM: 1. Breast cancer, status post bilateral mastectomy. She had a sentinel lymph node and right axillar y dissection and did very well postoperatively. She was discharged on 03/21/2018. 2. Severe lung disease. Her O2 saturations were maintained on supplemental oxygen. PHYSICAL EXAM: VITAL SIGNS: On day of discharge, blood pressure 153/72, heart rate 76, respirations 16, O2 saturation 95% on 2 L/min. GENERAL: She is a pleasant female sitting comfortably. SUBHASH drain s with serosanguineous fluid drainage. Dressings were clean and intact. LABORATORY DATA: No new data points on 03/21/2018. RESULTS PENDING: None. DIET: Per previous. ACTIVITY: No heavy lifting or pushing or pulling greater than 15 pounds for 2 weeks. DISCHARGE MEDICATIONS: Please see med reconciliation. DISCHARGE INSTRUCTIONS: As per above. Follow up with Dr. Hall on 03/23/2018, as scheduled. /[id number]/MODL
== END 2018-03-21 12:45 | disposition home or self-care (01) | DRG 581 ==
LOC: F3E 07:03 → F2N 16:55 → OBSVTOIN 03-18 14:41 → F1N 03-18 16:47
PROVIDERS: ADMIT Surgery; ATTEND Surgery
DX: D05.12 Intraductal carcinoma in situ of left breast (principal); D05.01 Lobular carcinoma in situ of right breast; J84.89 Other specified interstitial pulmonary diseases; Z17.0 Estrogen receptor positive status [ER+]; I27.20 Pulmonary hypertension, unspecified; T45.1X5A Adverse effect of antineoplastic and immunosuppressive drugs, initial encounter; I10 Essential (primary) hypertension; E03.9 Hypothyroidism, unspecified; Z96.651 Presence of right artificial knee joint
CPT/HCPCS: 97110-GP; 97116-GP; 97161-GP; 97166-GO; 97530-GO; 97530-GP; 97535-GO; A9520; G0378; J2250; J2704; J3010; J3370; J7512

== ENCOUNTER → 2018-05-01 | Outpatient (CLI) | payer OTHER | DX: Z13.820 Encounter for screening for osteoporosis (principal); Z78.0 Asymptomatic menopausal state; Z85.3 Personal history of malignant neoplasm of breast; Z79.890 Hormone replacement therapy; Z92.241 Personal history of systemic steroid therapy ==

== ENCOUNTER → 2018-06-01 | Outpatient (CLI) | payer OTHER ==
[~2018-06-01] MED LIST changes: +IOPAMIDOL (ISOVUE-370) 150 ML BTL IV ONE; -VANCOMYCIN 1.25 GM in D5W 250 ML IV ONE; -VANCOMYCIN 1.25 GM in NS 250 ML IV ONE
== END ==
LOC: FIMAGING 11:30
PROVIDERS: ATTEND Surgery
PROC: 0H9U30Z Drainage of Left Breast with Drainage Device, Percutaneous Approach (ICD-10-PCS; principal; 2018-06-01)
DX: L76.33 Postprocedural seroma of skin and subcutaneous tissue following a dermatologic procedure (principal)
CPT/HCPCS: 19000; 75989; C1729; C1769; Q9967

== ENCOUNTER → 2018-09-27 | Outpatient (CLI) | payer OTHER | LOC: FIMAGING 17:05 | PROVIDERS: ATTEND Nurse Practitioner | DX: M79.89 Other specified soft tissue disorders (principal); M79.601 Pain in right arm ==

== ENCOUNTER 2018-11-22 12:21 | Observation (INO) | payer OTHER ==
[2018-11-22] MEDS ORDERED: ONDANSETRON 4 MG/2 ML VIAL IVP PRN (12:35)
[2018-11-22] MEDS ORDERED: ACETAMINOPHEN 325 MG TAB PO PRN (12:35)
[2018-11-22] MEDS ORDERED: ONDANSETRON DISINTEGRATING 4 MG TAB PO PRN (12:35)
[2018-11-22 14:55] LABS: PLATELET COUNT 281 10^3/uL (150-400)
[2018-11-22 15:18] LABS: INR 1.02 (0.83-1.16)
[2018-11-22] MEDS ORDERED: IOPAMIDOL (ISOVUE-300) 100 ML BTL ONE (15:48)
--- NOTE | 2018-11-22 16:52 | PDGENHP ---
History and Physical - Chief Complaint anemia - History of Present Illness 62yo F with bilateral breast cancer s/p mastectomy complicated by chemo induced pneumonitis and a history of anemia presents from oncology clinic due to concerns of worsening anemia. She has actually had this worked up as an outpatient. EGD and colonoscopy from 10/16/2018 showed gastritis. A tubular adenoma was also removed. She denies any melena, hematochezia, hematemesis, hematuria, or epistaxis. She has been feeling a bit more fatigued than usual. She has received 6 IV iron infusions over the past 6 months or so. She stopped taking prednisone in June 2018. Denies etoh or nsaid use. Her hemoglobin in clinic today was 7.1, whereas she has previously been in the 10 range. History Information - Allergies/Home Medication List Allergies/Adverse Reactions: Penicillins Allergy (Intermediate, Verified 11/28/17 15:52) Hives Home Medications: Herbals/Supplements -Info Only 1 each PO DAILY 06/11/15 [Last Taken 03/12/18] C/E/Zn/Cu/OM3/DHA/EPA/LUT/ZEAX [Preservision Areds 2 Softgel] 1 each PO BID [Last Taken 03/12/18] Calcium Carb W/Vit D [Calcium Carb W/Vit D 500/200 (*)] 500 mg PO BID 11/28/17 [ Last Taken 03/12/18] Cholecalciferol Vit D3 [Vitamin D3 2000 units tab (OTC)] 5,000 units PO DAILY [Last Taken 03/12/18] Levothyroxine [Synthroid 137 mcg (*)] 137 mcg PO DAILY06 11/28/17 [Last Taken 03:00] Omeprazole 40 mg PO DAILY 11/22/18 [Last Taken 11/22/18] Zolpidem Tartrate [Ambien 5MG (*)] 5 - 10 mg PO HS PRN 11/22/18 [Last Taken 03/06 21:00 5mg] I have personally reviewed and updated: family history, medical history, social history, surgical history - Past Medical History Additional medical history: bilateral breast cancer, 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 Review of Systems Review of Systems: ROS: 10pt was reviewed & negative except for what was stated in HPI & below Physical Exam Physical Exam: Temp Pulse Resp BP Pulse Ox 36.6 C 76 16 113/64 100 11/22/18 15:59 11/22/18 15:59 11/22/18 15:59 11/22/18 15:59 11/22/18 15:59 O2 (L/minute) 2 Constitutional: no apparent distress, appears nourished, not in pain Eyes: PERRL, anicteric sclera, EOMI Ears, Nose, Mouth, Throat: moist mucous membranes, hearing normal, ears appear normal, no oral mucosal ulcers Cardiovascular: regular rate and rhythym, no murmur, rub, or gallop, No edema Respiratory: no respiratory distress, no rales or rhonchi, clear to auscultation Gastrointestinal: normoactive bowel sounds, soft, non-tender abdomen, no palpable masses Genitourinary: no bladder fullness, no bladder tenderness Skin: warm, normal color, no rashes or abrasions, no fluctuance, no induration, No mottled Musculoskeletal: full muscle strength, no muscle tenderness, normal joint ROM, no joint effusions Neurologic: AAOx3 Psychiatric: interacting appropriately, not anxious, not encephalopathic, thought process linear Lab Data & Imaging Review 11/22/18 14:46 11/22/18 14:46 WBC 6.19 10^3/uL (3.80-9.50) 11/22/18 14:46 RBC 2.23 10^6/uL (4.18-5.33) L 11/22/18 14:46 Hgb 7.2 g/dL (12.6-16.3) L 11/22/18 14:46 Hct 22.8 % (38.0-47.0) L 11/22/18 14:46 MCV 102.2 fL (81.5-99.8) H 11/22/18 14:46 MCH 32.3 pg (27.9-34.1) 11/22/18 14:46 MCHC 31.6 g/dL (32.4-36.7) L 11/22/18 14:46 RDW 19.7 % (11.5-15.2) H 11/22/18 14:46 Plt Count 281 10^3/uL (150-400) 11/22/18 14:46 MPV 9.6 fL (8.7-11.7) 11/22/18 14:46 Neut % (Auto) 69.1 % (39.3-74.2) 11/22/18 14:46 Lymph % (Auto) 18.3 % (15.0-45.0) 11/22/18 14:46 [place] % (Auto) 8.7 % (4.5-13.0) 11/22/18 14:46 Eos % (Auto) 2.9 % (0.6-7.6) 11/22/18 14:46 Baso % (Auto) 0.5 % (0.3-1.7) 11/22/18 14:46 Nucleat RBC Rel Count 0.0 % (0.0-0.2) 11/22/18 14:46 Absolute Neuts (auto) 4.28 10^3/uL (1.70-6.50) 11/22/18 14:46 Absolute Lymphs (auto) 1.13 10^3/uL (1.00-3.00) 11/22/18 14:46 Absolute Monos (auto) 0.54 10^3/uL (0.30-0.80) 11/22/18 14:46 Absolute Eos (auto) 0.18 10^3/uL (0.03-0.40) 11/22/18 14:46 Absolute Basos (auto) 0.03 10^3/uL (0.02-0.10) 11/22/18 14:46 Absolute Nucleated RBC 0.00 10^3/uL (0-0.01) 11/22/18 14:46 Immature Gran % 0.5 % (0.0-1.1) 11/22/18 14:46 Immature Gran # 0.03 10^3/uL (0.00-0.10) 11/22/18 14:46 Platelet Estimate ADEQUATE (ADEQ) 11/22/18 14:46 Polychromasia 2+ H 11/22/18 14:46 Basophilic Stippling 2+ H 11/22/18 14:46 Tear Drop Cells 1+ H 11/22/18 14:46 Oval Macrocytes 1+ H 11/22/18 14:46 PT 13.0 SEC (12.0-15.0) 11/22/18 14:46 INR 1.02 (0.83-1.16) 11/22/18 14:46 APTT 28.1 SEC (23.0-38.0) 11/22/18 14:46 Fibrinogen 296 mg/dL (214-456) 11/22/18 14:46 Sodium 133 mEq/L (135-145) L 11/22/18 14:46 Potassium 3.7 mEq/L (3.5-5.2) 11/22/18 14:46 Chloride 104 mEq/L (97-110) 11/22/18 14:46 Carbon Dioxide 25 mEq/l (22-31) 11/22/18 14:46 Anion Gap 4 mEq/L (6-14) L 11/22/18 14:46 BUN 19 mg/dL (7-23) 11/22/18 14:46 Creatinine 0.6 mg/dL (0.6-1.0) 11/22/18 14:46 Estimated GFR > 60 11/22/18 14:46 Glucose 126 mg/dL (70-100) H 11/22/18 14:46 Calcium 8.4 mg/dL (8.5-10.4) L 11/22/18 14:46 Lactate Dehydrogenase 475 IU/L (313-618) 11/22/18 14:46 Patient ABO/Rh A POSITIVE 11/22/18 14:46 Antibody Screen NEGATIVE 11/22/18 14:46 Crossmatch IS Only See Detail 11/22/18 14:46 Assessment & Plan Assessment: 62yo F with bilateral breast cancer s/p mastectomy complicated by chemo induced pneumonitis and a history of anemia presents from oncology clinic due to concerns of worsening anemia. Plan: #Acute on chronic anemia: Outpt labs indicate iron deficiency. Slight macrocytosis. - Recent EGD and colonoscopy showed gastritis/upper GI mucosal inflammation - Continue PPI - Check B12, folate - Transfuse 2 units PRBCs today - CT abd/pelvis w/IV contrast #Hyponatremia: Mild. - Encourage PO intake, recheck in AM #Breast cancer: Followed by Dr Graham. S/p bilateral mastectomy. Arimidex stopped recently. #H/o taxotere induced pneumonitis with chronic hypoxia: On 2L , which is baseline. Currently off steroids and mycophenolate. #Chronic RUE lymphedema #Hypothyroidism: Continue home LT4 replacement. VTE ppx: LMWH Code: full Dispo: Admit under observation, plan to dc tomorrow if CT ok and responds appropriately to PRBC transfusion
[2018-11-22] MEDS ORDERED: ZOLPIDEM TARTRATE 5 MG TAB PO PRN (17:24)
--- NOTE | 2018-11-22 19:13 | GCON ---
[f rep st] CONSULTATION ONCOLOGY CONSULTATION DATE OF CONSULTATION: 11/22/2018 REASON FOR CONSULTATION: 1. History of early stage breast carcinoma. 2. Anemia. HISTORY OF PRESENT ILLNESS: The patient is a pleasant 62-year-old female followed by my partner, Dr. Cuba Graham. She was diagnosed with stage IIA, ER/MA positive, HER-2/juan positive breast carcinom a in May of 2017. She was treated with neoadjuvant docetaxel, carboplatin, and trastuzumab. She unfortunately developed pneumonitis related to trastuzumab. She underwent bilateral total mastectomy in February of 2018. She has been more recently on Arimidex. She underwent a lengthy course of prednisone treatment for her trastuzumab induced pneumonitis and wilder s more recently been evaluated by a yarn cleaner at [facility] and was started on Cell Cept. She has had problems with persistent anemia, which has gradually gotten worse studies demonstra humberto iron deficiency. The patient had an upper endoscopy and colonoscopy done on October 16, 2018, whi ch revealed gastritis, but no other source of blood loss. She was started on Prilosec. She has had ir on infusions, but remains anemic. Her ferritin has improved. Approximately 1 week ago, her CellCept was stopped as it was felt to be contributing to her gastritis and also potentially to her anemia. She was seen in the office earlier today with symptomatic anemia and was admitted for further managem ent. She reports exertional dyspnea and fatigue. She denies chest pain or headache. Her is pr esent for the visit today. She denies any blood in the stool or black stools. She denies any hematuri a. PAST MEDICAL HISTORY: Early stage breast carcinoma as outlined above. Otherwise unremarkable. FAMILY MEDICAL HISTORY: Notable for ovarian cancer in a paternal grandmother. Father had lung cancer age 61. Maternal grandmother had breast cancer in her 70s. Maternal grandfather had prostate cancer. SOCIAL HISTORY: The patient lives in [place]. She is . She has 4 grown children. She is a no nsmoker. She drinks alcohol rarely. 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 REVIEW OF SYSTEMS: As outlined above. Remainder 10-point review of systems otherwise negative. PHYSICAL EXAM: GENERAL: Patient's present for entire exam. The patient is resting comfortabl y in bed. She is in no acute distress. HEENT: Conjunctiva are pale. No scleral icterus. ABDOMEN: Soft , nontender, nondistended with no organomegaly or mass. Bowel sounds normoactive. EXTREMITIES: No ext remity swelling or edema. No visible skin rash. PSYCHIATRIC: Patient is alert, oriented, and appropri ate. LABORATORY STUDIES: From the office today, white count 5000, hemoglobin 7.1, hematocrit 24.0, MCV 10 3, platelet count 284,000. Iron saturation is 11%, ferritin 174, iron level is 39. BUN 19, creatinine is 0.6. Liver function tests unremarkable. IMPRESSION: 1. Stage IIA ER/MA positive, HER-2/juan positive breast carcinoma (currently without evidence of dise ase). 2. Taxotere induced pneumonitis (patient uses supplemental oxygen). 3. Iron deficiency anemia. 4. Gastritis identified on upper endoscopy October 16, 2017. The patient is a pleasant 62-year-old female with a history of stage II breast cancer in Taxotere ind uced pneumonitis. She has had worsening anemia related to iron deficiency. I suspect that her anemia is multifactorial. Certainly gastritis may have played a small contributing role. I suspect the patie nt may have small bowel erosions related to long-term prednisone use. I think an outpatient capsule e ndoscopy would be useful next step in her evaluation. Her anemia is symptomatic. We discussed the option of packed red cell transfusion. Risks and benefits were reviewed in detail with the patient and her . She consents. She signs a transfusion cons ent today. She will be given 2 units of packed red blood cells. I will order a CT abdomen, pelvis to exclude recurrent metastatic disease as a potential source of bl ood loss. I think this is likely a low yield study, but will be done given the unexplained nature of her ongoing anemia. Her CellCept has been stopped. This certainly may have been contributing as well. She will continue t o follow closely with her yarn cleaner at [facility]. If she responds well to transfusion and has an unremarkable CT, she could be potentially discharged t omorrow to continue follow up with Gastroenterology and potentially proceed with capsule endoscopy. Deuce Graham is aware of her admission. The plan was discussed with the patient, her , as well as the hospitalist service. Her questions were answered. Total time for today's visit was approximately 45 minutes of which greater than 50% was spent in coun seling care coordination. /[id number]/MODL
[2018-11-22] MEDS: CALCIUM CARB W/VIT D 500 MG TAB PO SCH (20:50)
[2018-11-23] MEDS: LEVOTHYROXINE 137 MCG TAB PO SCH ×2 (03:54→04:01)
[2018-11-23] MEDS ORDERED: PANTOPRAZOLE SODIUM 40 MG TAB PO SCH (09:00)
[2018-11-23] MEDS: CALCIUM CARB W/VIT D 500 MG TAB PO SCH (10:07)
--- NOTE | 2018-11-23 15:31 | PDDCSUM ---
Discharge Summary Discharge Summary: Date of Admission: 11/22/2018 Date of Discharge: 11/23/2018 Consultants: oncology Studies: CT abdomen/pelvis, pelvic ultrasound Discharge Diagnoses: 1. Acute on chronic anemia 2. Gastritis 3. Mild iron deficiency 4. Stage IIa ER/NV positive, HER-2/juan positive breast cancer (currently without evidence of disease) 5. Taxotere induced pneumonitis with chronic hypoxia (currently off cellcept and steroids) 6. Hypothyroidism Brief Hospital Course: 62yo F with bilateral breast cancer s/p mastectomy complicated by chemo induced pneumonitis and a history of anemia presented from oncology clinic due to worsening anemia. Her hemoglobin had been roughly 10g/dl for the past year. It was 7.8 on 11/16 and then 7.1 in clinic on 11/22. She had actually had this worked up recently including EGD and colonoscopy. EGD showed some gastritis. Colonoscopy was unremarkable except for removal of a benign polyp. I suspect she may have some small bowel erosions related to long-term prednisone use (she was on very long taper for her pneumonitis until late 2018). She was transfused 2 units of PRBCs and her hemoglobin improved to 8.6. A CT of her abdomen was unremarkable except for some endometrial thickening. She denies any vaginal bleeding. Nonetheless, a pelvic ultrasound was performed which shows an equivocal thickening of a portion of her endometrium. She can consider getting this biopsied as an outpatient but I do not think this is contributing to her anemia. Medications: Please refer to EMR. No changes this admission. Follow Up Plan: 1. Recommend outpatient capsule endoscopy 2. Routine blood draws with oncology 3. Consider endometrial biopsy Physical Exam: Vitals reviewed, stable. Alert and oriented, rrr, lungs clear, abdomen soft and nt, no leg edema or jvd, no rashes.
[2018-11-23 16:01] VITALS: BP 125/71
--- NOTE | 2018-11-23 16:34 | ASMTCMCOM ---
CM Note CM Note Notes: Met with Pt. Shruthi is a 62yr old adm w/ Anemia and GI Bleeding. She has a hx of Breast Ca, s/p mastectomy & Chemo. Pt has not needs and will be discharge home with . CM available if needs arise. Plan: Home Independently w/ Date Signed: 11/23/2018 04:34 PM Electronically Signed By:Lori Collins
--- NOTE | 2018-11-23 16:35 | ASMTLACE ---
LACE Length of stay for Answers: 2 days current admission Comorbidities - select Answers: Any tumor (including all that apply lymphoma or leukemia) Other Notes: Hypothyroid # of Emergency department Answers: 0 visits in the last 6 months Score: 5 Date Signed: 11/23/2018 04:35 PM Electronically Signed By:Lori Collins
== END 2018-11-23 17:21 | disposition home or self-care (01) ==
LOC: F1N 13:22 → INTOOBSV 13:22
PROVIDERS: ADMIT Internal Medicine; ATTEND Internal Medicine
DX: D50.9 Iron deficiency anemia, unspecified (principal); K29.70 Gastritis, unspecified, without bleeding; C50.919 Malignant neoplasm of unspecified site of unspecified female breast; J70.2 Acute drug-induced interstitial lung disorders; R09.02 Hypoxemia; E03.9 Hypothyroidism, unspecified
CPT/HCPCS: 74177; 76856; G0378; P9016; 82607-90; Q9967